=== PATIENT | female | born 1940 | race American Indian/Alaskan Native ===

== ENCOUNTER 2017-02-13 11:42 | Outpatient (CLI) | payer OTHER ==
[2017-02-13 12:56] LABS: Blood Urea Nitrogen 21 mg/dL (7-17)
--- NOTE | 2017-02-13 14:44 | Cat Scan Report ---
CT CHEST WITH CONTRAST: HISTORY: Syncope and collapse. TECHNIQUE: Helical CT following IV contrast. Sagittal and coronal reformatted images. FINDINGS: Heart size is normal. There is no evidence of adenopathy within the mediastinum. There is mild scarring in the right lower lobe, otherwise, the lungs are clear. The pleura is unremarkable. No masses involve the chest wall. No abnormalities are noted within the upper abdomen. The adrenal glands are normal. IMPRESSION: Right lower lobe scarring. No acute process.
== END 2017-02-13 11:43 | disposition home or self-care (01) ==
LOC: CT 11:42
PROVIDERS: ATTEND Internal Medicine
DX: R55 Syncope and collapse (principal)
CPT/HCPCS: 36415; 71260; 82565; 84520; Q9967

== ENCOUNTER 2019-02-04 09:20 | Inpatient (IN) | payer MEDICARE, OTHER ==
[2019-02-04 11:15] LABS: Basophils # (Auto) 0.1 K/mm3 (0.0-0.1); Basophils % (Auto) 1.4 % (0.0-1.8); Eosinophils % (Auto) 0.2 % (0.0-4.3); Hematocrit 33.9 % (30.3-42.9); Hemoglobin 10.6 gm/dl (10.1-14.3); Lymphocytes # (Auto) 0.5 K/mm3 (1.2-5.4); Lymphocytes % (Auto) 5.8 % (13.4-35.0); Mean Corpuscular HGB Conc 31 % (30-34); Mean Corpuscular Volume 79 fl (79-97); Monocytes % (Auto) 11.5 % (0.0-7.3); Platelet Count 177 K/mm3 (140-440); Red Blood Count 4.31 M/mm3 (3.65-5.03)
[2019-02-04 11:17] LABS: Red Cell Distribution Width 21.2 % (13.2-15.2)
[2019-02-04 11:26] LABS: INR 1.55 (0.87-1.13)
[2019-02-04 11:27] LABS: Partial Thromboplastin Time 27.7 Sec. (24.2-36.6)
[2019-02-04 11:34] LABS: Albumin 3.6 g/dL (3.9-5); Calcium 9.2 mg/dL (8.4-10.2)
--- NOTE | 2019-02-04 12:39 | Emergency Department Report ---
HPI - General Chief Complaint: Extremity Problem,Nontraumatic Time Seen by Provider: 02/04/19 12:15 - HPI HPI: 78-year-old -[place] female presents to the emergency department with complaint of left lower extremity swelling and pain that has been going on for the past 5-6 days. She went to [facility] yesterday and was found to have a DVT of the left lower extremity from the common and deep femoral vein down through the posterior tibial vein. She also had a CT angiography of the chest that did not show any embolism or any other acute process. She was started on Eliquis and given Percocet for pain. She saw her oncologist this morning, Dr. Fritz, and she expressed her continued and increased pain and swelling and she was told to come to the emergency department. She has a history of multiple myeloma, diagnosed in the middle of last year, and she has been taking chemotherapy for the past 6-7 months. ED Past Medical Hx - Past Medical History Previous Medical History?: Yes Hx Hypertension: Yes Additional medical history: Bone cancer - Surgical History Past Surgical History?: No - Social History Smoking Status: Never Smoker Substance Use Type: None - Medications Home Medications: Home Medications Medication Instructions Recorded Confirmed Last Taken Type Dexamethasone [Decadron] 4 mg PO Q12H 02/04/19 02/04/19 Unknown History Docusate Sodium [Doc-Q-Lace] 100 mg PO DAILY 02/04/19 02/04/19 Unknown History Furosemide [Lasix] 20 mg PO QDAY 02/04/19 02/04/19 Unknown History Lenalidomide [Revlimid] 15 mg PO QDAY 02/04/19 02/04/19 Unknown History Lisinopril [Zestril] 20 mg PO QDAY 02/04/19 02/04/19 Unknown History Metoprolol [Lopressor] 25 mg PO BID 02/04/19 02/04/19 Unknown History Pravastatin [Pravachol] 80 mg PO QHS 02/04/19 02/04/19 Unknown History ED Review of Systems ROS: Stated complaint: L LEG PAIN Other details as noted in HPI Comment: All other systems reviewed and negative Constitutional: denies: chills, fever Eyes: denies: eye pain, vision change ENT: denies: ear pain, throat pain Respiratory: denies: cough, shortness of breath Cardiovascular: edema. denies: chest pain, palpitations Gastrointestinal: denies: abdominal pain, vomiting Genitourinary: denies: dysuria, discharge Musculoskeletal: joint swelling, myalgia. denies: arthralgia Skin: denies: rash, lesions Neurological: denies: headache, weakness Physical Exam - Physical Exam Vital Signs: Vital Signs 02/04/19 09:33 Temperature 98.1 F Pulse Rate 80 Respiratory 16 Rate Blood Pressure 102/51 O2 Sat by Pulse 80 L Oximetry Physical Exam: GENERAL: The patient is well-developed well-nourished. HEENT: Normocephalic. Atraumatic. Patient has moist mucous membranes. EYES: Extraocular motions are intact. Pupils are equal and reactive to light bilaterally. NECK: Supple. Trachea is midline. CHEST/LUNGS: Clear to auscultation. There is no respiratory distress noted. HEART/CARDIOVASCULAR: Regular. There is no tachycardia. There is no obvious murmur. ABDOMEN: Abdomen is soft, nontender. Patient has normal bowel sounds. There is no abdominal distention. SKIN: LLE has moderate to severe non-pitting swelling and is tender to palpation up to the thigh. NEURO: The patient is awake, alert, and oriented. The patient is cooperative. The patient has no focal neurologic deficits. The patient has normal speech. MUSCULOSKELETAL: There is no tenderness or deformity. There is no evidence of acute injury. ED Course Vital Signs 02/04/19 09:33 Temperature 98.1 F Pulse Rate 80 Respiratory 16 Rate Blood Pressure 102/51 O2 Sat by Pulse 80 L Oximetry ED Medical Decision Making - Lab Data Result diagrams: 02/04/19 10:57 02/04/19 10:57 - Radiology Data Radiology results: report reviewed Left lower extremity venous Doppler ultrasound appears to show a large acute DVT from the iliac down to the peroneal and posterior tibial. A preliminary report was called by [facility]. - Medical Decision Making Patient was found to have a DVT yesterday but continued to have increased pain and swelling. She was sent in by her oncologist for this reason. Due to the patient's outpatient failure on the anticoagulation with increased swelling and pain, the patient has been placed on a heparin drip. She was seen by the vascular surgeon who will continue to follow her over the weekend to see if there is improvement or if further intervention is necessary. The patient was accepted for admission by the hospitalist, Dr. Liu. - Differential Diagnosis DVT, venous stasis, cellulitis Critical Care Time: No Critical care attestation.: If time is entered above; I have spent that time in minutes in the direct care of this critically ill patient, excluding procedure time. ED Disposition Clinical Impression: Failure of outpatient treatment, Obesity (BMI 30-39.9) Deep vein thrombosis (DVT) of distal vein of left lower extremity Qualifiers: Chronicity: acute Qualified Code(s): I82.4Z2 - Acute embolism and thrombosis of unspecified deep veins of left distal lower extremity Disposition: OP ADMIT IP TO THIS HOSP Is pt being admited?: Yes Condition: Fair Time of Disposition: 17:57
[2019-02-04] MEDS ORDERED: NACL 0.9% 1000 ML 1,000 ML IV ONE (12:48)
[2019-02-04] MEDS: HEPARIN/ 0.45% NACL-25,000 UNIT/500 ML 25,000 UNIT/500 ML BAG IV SCH (13:10)
[2019-02-04] MEDS ORDERED: SUBLIMAZE IV ONE (13:13)
[2019-02-04] MEDS ORDERED: PROVENTIL IH PRN (14:00)
[2019-02-04] MEDS ORDERED: ZOFRAN IV PRN (14:00)
[2019-02-04] MEDS ORDERED: SODIUM CHLORIDE FLUSH SYRINGE 10 ML IV PRN (14:00)
--- NOTE | 2019-02-04 14:07 | History and Physical Report ---
History of Present Illness Chief complaint: My leg hurts History of present illness: 78 YO Female with HTN, Multiple Myeloma, Obesity presents to ED for evaluation. Pt states that she has experienced Pain and swelling in her left lower extremity over the past 1 week with worsening symptoms over the past 3 days. Patient was seen and evaluated at [facility] yesterday and found to have an extensive DVT in the left lower extremity. DVT extends from the common and deep femoral vein down through the posterior tibial vein. Pt was treated with oral therapeutic anticoagulation and discharged home. Pt has experienced worsening leg pain over the past 1 day. Pt presents for evaluation. Pt seen and evaluated in ED and found to have symptoms consistent with LLE DVT. IR consulted in ED. Pt initiated on heparin drip. Pt denies fever, chills, CP, Palpitations, NVD, Trauma, Hemoptysis, BRBPR, Skin rash, Productive cough, or recent ill contacts. Past History Past Medical History: cancer, hypertension, other (obesity) Past Surgical History: No surgical history, Other (reviewed) Social history: . denies: smoking, alcohol abuse, prescription drug abuse Family history: hypertension Medications and Allergies Allergies Allergy/AdvReac Type Severity Reaction Status Date / Time Penicillins Allergy Swelling Unverified 02/13/17 11:59 STEROIDS AdvReac Dizziness Uncoded 02/13/17 12:01 Active Meds: Active Medications Acetaminophen (Tylenol) 650 mg PO Q4H PRN PRN Reason: Pain MILD(1-3)/Fever >100.5/JOSHI Albuterol (Proventil) 2.5 mg IH Q4HRT PRN PRN Reason: Shortness Of Breath Famotidine (Pepcid) 10 mg PO BID BRITT Heparin Sodium/Sodium Chloride (Heparin/ 0.45% Nacl-25,000 Unit/500 Ml) 25,000 unit in 500 mls @ 30 mls/hr IV TITR BRITT; Protocol Ondansetron HCl (Zofran) 4 mg IV Q8H PRN PRN Reason: Nausea And Vomiting Oxycodone/Acetaminophen (Percocet 5/325) 1 tab PO Q6H PRN PRN Reason: Pain, Moderate (4-6) Sodium Chloride (Sodium Chloride Flush Syringe 10 Ml) 10 ml IV BID BRITT Sodium Chloride (Sodium Chloride Flush Syringe 10 Ml) 10 ml IV PRN PRN PRN Reason: LINE FLUSH Review of Systems Constitutional: no weight loss, no weight gain, no fever, no chills Cardiovascular: no chest pain, no orthopnea, no palpitations, no rapid/irregular heart beat, no edema, no syncope, no lightheadedness Respiratory: no cough, no cough with sputum, no excessive sputum, no hemoptysis, no shortness of breath Gastrointestinal: no nausea, no vomiting, no diarrhea, no constipation Genitourinary Female: no pelvic pain, no flank pain, no menorrhagia, no dysuria, no urinary frequency, no urgency Rectal: no pain, no incontinence, no bleeding Musculoskeletal: no neck stiffness, no neck pain, no shooting arm pain, no arm numbness/tingling, no low back pain, no shooting leg pain Integumentary: no rash, no pruritis, no redness, no sores, no wounds Neurological: no transient paralysis, no paralysis, no weakness, no parathesias, no numbness, no tingling Psychiatric: no anxiety, no memory loss, no change in sleep habits, no sleep disturbances, no insomnia, no hypersomnia, no change in appetite Endocrine: no cold intolerance, no heat intolerance, no polyphagia, no excessive thirst, no polydipsia, no polyuria Hematologic/Lymphatic: no easy bruising, no easy bleeding, no lymphadenopathy, no lymphedema Allergic/Immunologic: no urticaria, no allergic rhinitis, no wheezing Exam - Constitutional Vitals: Temp Pulse Resp BP Pulse Ox 98.1 F 80 16 102/51 80 L 02/04/19 09:33 02/04/19 09:33 02/04/19 13:20 02/04/19 09:33 02/04/19 09:33 General appearance: Present: mild distress, obese - EENT Eyes: Present: PERRL ENT: hearing intact, clear oral mucosa - Neck Neck: Present: supple, normal ROM - Respiratory Respiratory effort: normal Respiratory: bilateral: CTA - Cardiovascular Heart Sounds: Present: S1 & S2. Absent: rub, click - Extremities Extremity abnormal: edema, tenderness Peripheral Pulses: within normal limits - Abdominal General gastrointestinal: Present: soft, non-tender, non-distended, normal bowel sounds Female genitourinary: Present: normal - Integumentary Integumentary: Present: clear, warm, dry - Musculoskeletal Musculoskeletal: gait normal, strength equal bilaterally - Psychiatric Psychiatric: appropriate mood/affect, intact judgment & insight - Neurologic Neurologic: CNII-XII intact, moves all extremities Results - Labs CBC & Chem 7: 02/04/19 10:57 02/04/19 10:57 Labs: Abnormal lab results 02/04/19 02/04/19 02/04/19 Range/Units 10:57 10:57 10:57 MCH 25 L (28-32) pg RDW 21.2 H (13.2-15.2) % Lymph % (Auto) 5.8 L (13.4-35.0) % [place] % (Auto) 11.5 H (0.0-7.3) % Lymph # 0.5 L (1.2-5.4) K/mm3 [place] # 1.0 H (0.0-0.8) K/mm3 Seg Neutrophils % 81.1 H (40.0-70.0) % PT 19.6 H (12.2-14.9) Sec. INR 1.55 H (0.87-1.13) Sodium 135 L (137-145) mmol/L Carbon Dioxide 21 L (22-30) mmol/L BUN 43 H (7-17) mg/dL Creatinine 1.8 H (0.7-1.2) mg/dL Albumin 3.6 L (3.9-5) g/dL Assessment and Plan - Patient Problems (1) Deep vein thrombosis (DVT) of distal vein of left lower extremity Current Visit: Yes Status: Acute Qualifiers: Chronicity: acute Qualified Code(s): I82.4Z2 - Acute embolism and thrombosis of unspecified deep veins of left distal lower extremity Plan to address problem: Heparin drip, IR consulted, LLE Duplex, supplemental oxygen, pulse oximetry, (2) Obesity (BMI 30-39.9) Current Visit: Yes Status: Acute Plan to address problem: Increased physical activity at discharge, balanced diet. (3) HTN (hypertension) Current Visit: Yes Status: Acute Qualifiers: Hypertension type: essential hypertension Qualified Code(s): I10 - Essential (primary) hypertension Plan to address problem: monitor bp q shift (4) Obesity hypoventilation syndrome Current Visit: Yes Status: Acute Plan to address problem: supplemental oxygen, nebulizer therapy, NIPPv as clinically indicated, pulse oximetry, early ambulation (5) DVT prophylaxis Current Visit: Yes Status: Acute Plan to address problem: heparin drip
--- NOTE | 2019-02-04 14:48 | Consultation ---
History of Present Illness - Reason for Consult Consult date: 02/04/19 left lower extremity DVT - History of Present Illness Patient with a history of multiple myeloma who presents with baseline is insufficiency with bilateral lower extremity swelling began to notice left lower extremity asymmetric swelling 5-6 days ago. She presented yesterday to [facility] which she where she was found to have iliofemoral DVT. CTA of the chest demonstrated no pulmonary embolism. The patient was discharged home on Eliquis but returns today because her leg is still swollen. On examination, her leg is asymmetrically enlarged to the hip. The leg is soft and warm. Past History Past Medical History: cancer, DVT, hypertension, other (obesity) Past Surgical History: No surgical history, Other (reviewed) Social history: . denies: smoking, alcohol abuse, prescription drug abuse Family history: hypertension Medications and Allergies Allergies Allergy/AdvReac Type Severity Reaction Status Date / Time Penicillins Allergy Swelling Unverified 02/13/17 11:59 STEROIDS AdvReac Dizziness Uncoded 02/13/17 12:01 Active Meds: Active Medications Acetaminophen (Tylenol) 650 mg PO Q4H PRN PRN Reason: Pain MILD(1-3)/Fever >100.5/JOSHI Albuterol (Proventil) 2.5 mg IH Q4HRT PRN PRN Reason: Shortness Of Breath Famotidine (Pepcid) 10 mg PO BID BRITT Heparin Sodium/Sodium Chloride (Heparin/ 0.45% Nacl-25,000 Unit/500 Ml) 25,000 unit in 500 mls @ 30 mls/hr IV TITR BRITT; Protocol Ondansetron HCl (Zofran) 4 mg IV Q8H PRN PRN Reason: Nausea And Vomiting Oxycodone/Acetaminophen (Percocet 5/325) 1 tab PO Q6H PRN PRN Reason: Pain, Moderate (4-6) Sodium Chloride (Sodium Chloride Flush Syringe 10 Ml) 10 ml IV BID BRITT Sodium Chloride (Sodium Chloride Flush Syringe 10 Ml) 10 ml IV PRN PRN PRN Reason: LINE FLUSH Review of Systems All systems: negative Exam - Constitutional Vitals: Temp Pulse Resp BP Pulse Ox 98.1 F 80 16 102/51 80 L 02/04/19 09:33 02/04/19 09:33 02/04/19 13:20 02/04/19 09:33 02/04/19 09:33 General appearance: Present: no acute distress - EENT Eyes: Present: EOM intact ENT: hearing intact - Neck Neck: Present: supple, normal ROM - Respiratory Respiratory effort: normal - Extremities Extremity abnormal: edema (left) - Abdominal General gastrointestinal: Present: deferred - Rectal Rectal Exam: deferred - Integumentary Integumentary: Present: clear - Psychiatric Psychiatric: appropriate mood/affect, cooperative - Neurologic Neurologic: no focal deficits, moves all extremities Results - Labs CBC & Chem 7: 02/04/19 10:57 02/04/19 10:57 Labs: Abnormal lab results 02/04/19 02/04/19 02/04/19 Range/Units 10:57 10:57 10:57 MCH 25 L (28-32) pg RDW 21.2 H (13.2-15.2) % Lymph % (Auto) 5.8 L (13.4-35.0) % [place] % (Auto) 11.5 H (0.0-7.3) % Lymph # 0.5 L (1.2-5.4) K/mm3 [place] # 1.0 H (0.0-0.8) K/mm3 Seg Neutrophils % 81.1 H (40.0-70.0) % PT 19.6 H (12.2-14.9) Sec. INR 1.55 H (0.87-1.13) Sodium 135 L (137-145) mmol/L Carbon Dioxide 21 L (22-30) mmol/L BUN 43 H (7-17) mg/dL Creatinine 1.8 H (0.7-1.2) mg/dL Albumin 3.6 L (3.9-5) g/dL - Imaging and Cardiology Venous US: image reviewed Assessment and Plan Patient with iliofemoral DVT. Ultrasound demonstrates DVT extending from the external iliac vein distally on the left. The common iliac vein is not visualized. Patient was started on heparin drip in the emergency department. Patient will need to aggressively elevate her leg. Compression hose may also be necessary. We'll continue to evaluate the patient to determine if further intervention is necessary. The patient will likely need long-term anticoagulation secondary to her underlying cancer.
--- NOTE | 2019-02-04 17:56 | Vascular Lab Report ---
EXAM: VL VENOUS DUPLEX LE LT HISTORY: LLE pain and swelling TECHNIQUE: The lower extremity veins were interrogated with a high-frequency linear transducer, emplo fe grayscale imaging, duplex Doppler and color flow Doppler imaging. COMPARISON: None available. FINDINGS: There is intraluminal thrombosis, loss of compressibility, loss of intraluminal color flow Doppler si gnal, and loss of intraluminal duplex Doppler signal within the left external iliac vein, common femo ral vein, superficial femoral vein, popliteal vein, peroneal vein, and gastrocnemius veins in keeping with acute occlusive DVT. There is evidence for acute/occlusive thrombosis involving the greater saphenous vein from the proxim al thigh to the ankle, in keeping with SVT. There is diffuse subcutaneous soft tissue edema. No abnormal fluid collection reminiscent of a Goss' s cyst is seen in the popliteal fossa. No evidence for gross inguinal lymphadenopathy is seen. IMPRESSION: 1.. Extensive acute occlusive DVT involving the left lower extremity veins 2. Acute SVT involving the greater saphenous vein from the thigh to the ankle. 3. Subcutaneous soft tissue edema. 4. No abnormal fluid collection or Goss's cyst seen. This document is electronically signed by Oniel Walton MD., February 04 2019 05:54:51 PM ET
[2019-02-04] MEDS ORDERED: PERCOCET 5/325 ONE (18:37)
[2019-02-04] MEDS: PERCOCET 5/325 PO PRN (18:38)
[2019-02-04] MEDS: SODIUM CHLORIDE FLUSH SYRINGE 10 ML IV SCH (22:27)
[2019-02-04] MEDS: PEPCID PO SCH (22:27)
[2019-02-05 05:24] LABS: Calcium 8.7 mg/dL (8.4-10.2)
[2019-02-05 05:37] LABS: Hematocrit 30.4 % (30.3-42.9); Hemoglobin 9.9 gm/dl (10.1-14.3); Mean Corpuscular HGB Conc 33 % (30-34); Mean Corpuscular Volume 76 fl (79-97); Platelet Count 198 K/mm3 (140-440); Red Blood Count 3.98 M/mm3 (3.65-5.03)
[2019-02-05 05:39] LABS: Red Cell Distribution Width 20.7 % (13.2-15.2)
[2019-02-05 06:22] LABS: Anisocytosis 1+; Basophils % (Manual) 0 % (0.0-1.8); Eosinophils % (Manual) 0 % (0.0-4.3); Hypochromasia 1+; Total Cells Counted 100
[2019-02-05 06:23] LABS: Ovalocytes 1+; Platelet Estimate Consistent w Auto; Target Cells 1+; Tear Drop Cells Few
[2019-02-05] MEDS: TYLENOL PO PRN (07:35)
[2019-02-05 08:19] LABS: Partial Thromboplastin Time 67.7 Sec. (24.2-36.6)
[2019-02-05] MEDS: PEPCID PO SCH ×2 (09:56→21:45)
[2019-02-05] MEDS: SODIUM CHLORIDE FLUSH SYRINGE 10 ML IV SCH ×2 (09:56→21:45)
[2019-02-05] MEDS: HEPARIN/ 0.45% NACL-25,000 UNIT/500 ML 25,000 UNIT/500 ML BAG IV SCH (11:16)
--- NOTE | 2019-02-05 11:21 | Progress Note ---
Assessment and Plan Assessment and plan: 78 YO Female with HTN, Multiple Myeloma, Obesity presents to ED for evaluation. Pt states that she has experienced Pain and swelling in her left lower extremity over the past 1 week with worsening symptoms over the past 3 days. Patient was seen and evaluated at [facility] on day KILN TESTER and found to have an extensive DVT in the left lower extremity. DVT extends from the common and deep femoral vein down through the posterior tibial vein. Pt was treated with oral therapeutic anticoagulation and discharged home. Pt has experienced worsening leg pain over the past 1 day. Pt presents for evaluation. Pt seen and evaluated in ED and found to have symptoms consistent with LLE DVT. IR consulted in ED. Pt initiated on heparin drip. Pt denies fever, chills, CP, Palpitations, NVD, Trauma, Hemoptysis, BRBPR, Skin rash, Productive cough, or recent ill contacts. Iliofemoral DVT: Continue anticoagulation, Follow IR/Vascular Recommendation. Discussed with Nursing staff again about Keeping LOWER EXT ELEVATED. Patient counselling provided Vertigo: Christal Hallpike Testing, Vestibular Rehab, PT Consulted WENDY secondary vasomotor nephropathy: Improving. Continue fluds Secondary Coagulopathy: on anticoagulation Multiple Myeloma: Continue outpatient management. Will obtain Hematology eval. Patient may require lovenox in the setting of DVT with underlying cancer. HTN: STABLE DVT/GI prophy History Interval history: Patient seen and examined this morning admitted with pain of the left lower extremity secondary to progressive DVT. Denies any chest pain nausea vomiting this morning. Denies any further vertigo. States that she is hungry.eyes the bedside Hospitalist Physical - Physical exam Narrative exam: VITAL SIGNS: Reviewed. GENERAL: The patient appeared well nourished and normally developed. Morbidly obese, Vital signs as documented. HEAD: No signs of head trauma. EYES: Pupils are equal. Extraocular motions intact. EARS: Hearing grossly intact. MOUTH: Oropharynx is normal. NECK: No adenopathy, no JVD. CHEST: Chest with clear breath sounds bilaterally. No wheezes, rales, or rhonchi. CARDIAC: Regular rate and rhythm. S1 and S2, without murmurs, gallops, or rubs. VASCULAR: left lower ext swelling non pitting Edema. Peripheral pulses normal and equal in all extremities. ABDOMEN: Soft, without detectable tenderness. No sign of distention. No rebound or guarding, and no masses palpated. Bowel Sounds normal. MUSCULOSKELETAL: Good range of motion of all major joints. Extremities without clubbing, cyanosis. Left lower ext edema, non pitting. Per family swelling is improving. NEUROLOGIC EXAM: Alert and oriented x 3. No focal sensory or strength deficits. Speech normal. Follows commands. PSYCHIATRIC: Mood normal. SKIN: No rash or lesions. - Constitutional Vitals: Temp Pulse Resp BP Pulse Ox 98.9 F 95 H 20 105/60 100 02/05/19 07:28 02/05/19 07:28 02/05/19 07:35 02/05/19 07:28 02/05/19 07:28 General appearance: Present: no acute distress Results - Labs CBC & Chem 7: 02/05/19 04:48 02/05/19 04:48 Labs: Laboratory Last Values WBC 8.0 K/mm3 (4.5-11.0) 02/05/19 04:48 RBC 3.98 M/mm3 (3.65-5.03) 02/05/19 04:48 Hgb 9.9 gm/dl (10.1-14.3) L 02/05/19 04:48 Hct 30.4 % (30.3-42.9) 02/05/19 04:48 MCV 76 fl (79-97) L 02/05/19 04:48 MCH 25 pg (28-32) L 02/05/19 04:48 MCHC 33 % (30-34) 02/05/19 04:48 RDW 20.7 % (13.2-15.2) H 02/05/19 04:48 Plt Count 198 K/mm3 (140-440) 02/05/19 04:48 Lymph % (Auto) Refinery Operator Alkylation 02/05/19 04:48 [place] % (Auto) Refinery Operator Alkylation 02/05/19 04:48 Eos % (Auto) Refinery Operator Alkylation 02/05/19 04:48 Baso % (Auto) Refinery Operator Alkylation 02/05/19 04:48 Lymph # Refinery Operator Alkylation 02/05/19 04:48 [place] # Refinery Operator Alkylation 02/05/19 04:48 Eos # Refinery Operator Alkylation 02/05/19 04:48 Baso # Refinery Operator Alkylation 02/05/19 04:48 Add Manual Diff Complete 02/05/19 04:48 Total Counted 100 02/05/19 04:48 Seg Neutrophils % Refinery Operator Alkylation 02/05/19 04:48 Seg Neuts % (Manual) 82.0 % (40.0-70.0) H 02/05/19 04:48 Band Neutrophils % 0 % 02/05/19 04:48 Lymphocytes % (Manual) 10.0 % (13.4-35.0) L 02/05/19 04:48 Reactive Lymphs % (Man) 0 % 02/05/19 04:48 Monocytes % (Manual) 8.0 % (0.0-7.3) H 02/05/19 04:48 Eosinophils % (Manual) 0 % (0.0-4.3) 02/05/19 04:48 Basophils % (Manual) 0 % (0.0-1.8) 02/05/19 04:48 Metamyelocytes % 0 % 02/05/19 04:48 Myelocytes % 0 % 02/05/19 04:48 Promyelocytes % 0 % 02/05/19 04:48 Blast Cells % 0 % 02/05/19 04:48 Nucleated RBC % Not Reportable 02/05/19 04:48 Seg Neutrophils # Refinery Operator Alkylation 02/05/19 04:48 Seg Neutrophils # Man 6.6 K/mm3 (1.8-7.7) 02/05/19 04:48 Band Neutrophils # 0.0 K/mm3 02/05/19 04:48 Lymphocytes # (Manual) 0.8 K/mm3 (1.2-5.4) L 02/05/19 04:48 Abs React Lymphs (Man) 0.0 K/mm3 02/05/19 04:48 Monocytes # (Manual) 0.6 K/mm3 (0.0-0.8) 02/05/19 04:48 Eosinophils # (Manual) 0.0 K/mm3 (0.0-0.4) 02/05/19 04:48 Basophils # (Manual) 0.0 K/mm3 (0.0-0.1) 02/05/19 04:48 Metamyelocytes # 0.0 K/mm3 02/05/19 04:48 Myelocytes # 0.0 K/mm3 02/05/19 04:48 Promyelocytes # 0.0 K/mm3 02/05/19 04:48 Blast Cells # 0.0 K/mm3 02/05/19 04:48 WBC Morphology Not Reportable 02/05/19 04:48 Hypersegmented Neuts Not Reportable 02/05/19 04:48 Hyposegmented Neuts Not Reportable 02/05/19 04:48 Hypogranular Neuts Not Reportable 02/05/19 04:48 Smudge Cells Not Reportable 02/05/19 04:48 Toxic Granulation Not Reportable 02/05/19 04:48 Toxic Vacuolation Not Reportable 02/05/19 04:48 Dohle Bodies Not Reportable 02/05/19 04:48 Pelger-Huet Anomaly Not Reportable 02/05/19 04:48 Irma Rods Not Reportable 02/05/19 04:48 Platelet Estimate Consistent w auto 02/05/19 04:48 Clumped Platelets Not Reportable 02/05/19 04:48 Plt Clumps, EDTA Not Reportable 02/05/19 04:48 Large Platelets Not Reportable 02/05/19 04:48 Giant Platelets Not Reportable 02/05/19 04:48 Platelet Satelliting Not Reportable 02/05/19 04:48 Plt Morphology Comment Not Reportable 02/05/19 04:48 RBC Morphology Not Reportable 02/05/19 04:48 Dimorphic RBCs Not Reportable 02/05/19 04:48 Polychromasia Not Reportable 02/05/19 04:48 Hypochromasia 1+ 02/05/19 04:48 Poikilocytosis Not Reportable 02/05/19 04:48 Anisocytosis 1+ 02/05/19 04:48 Microcytosis Not Reportable 02/05/19 04:48 Macrocytosis Not Reportable 02/05/19 04:48 Spherocytes Not Reportable 02/05/19 04:48 Pappenheimer Bodies Not Reportable 02/05/19 04:48 Sickle Cells Not Reportable 02/05/19 04:48 Target Cells 1+ 02/05/19 04:48 Tear Drop Cells Few 02/05/19 04:48 Ovalocytes 1+ 02/05/19 04:48 Helmet Cells Not Reportable 02/05/19 04:48 [place] Bodies Not Reportable 02/05/19 04:48 [place] Rings Not Reportable 02/05/19 04:48 [place] Cells Not Reportable 02/05/19 04:48 Bite Cells Not Reportable 02/05/19 04:48 Crenated Cell Not Reportable 02/05/19 04:48 Elliptocytes Not Reportable 02/05/19 04:48 Acanthocytes (Spur) Not Reportable 02/05/19 04:48 Rouleaux Not Reportable 02/05/19 04:48 Hemoglobin C Crystals Not Reportable 02/05/19 04:48 Schistocytes Not Reportable 02/05/19 04:48 Malaria parasites Not Reportable 02/05/19 04:48 Angel Bodies Not Reportable 02/05/19 04:48 Hem Pathologist Commnt No 02/05/19 04:48 PT 19.6 Sec. (12.2-14.9) H 02/04/19 10:57 INR 1.55 (0.87-1.13) H 02/04/19 10:57 APTT 32.0 Sec. (24.2-36.6) 02/05/19 10:12 Heparin Anti-Xa Level 1.79 U.I./ml (0.3-0.7) H 02/05/19 10:12 Sodium 136 mmol/L (137-145) L 02/05/19 04:48 Potassium 3.9 mmol/L (3.6-5.0) 02/05/19 04:48 Chloride 101.5 mmol/L (98-107) 02/05/19 04:48 Carbon Dioxide 21 mmol/L (22-30) L 02/05/19 04:48 Anion Gap 17 mmol/L 02/05/19 04:48 BUN 37 mg/dL (7-17) H 02/05/19 04:48 Creatinine 1.1 mg/dL (0.7-1.2) 02/05/19 04:48 Estimated GFR 58 ml/min 02/05/19 04:48 BUN/Creatinine Ratio 34 % 02/05/19 04:48 Glucose 91 mg/dL (65-100) 02/05/19 04:48 Calcium 8.7 mg/dL (8.4-10.2) 02/05/19 04:48 Total Bilirubin 0.40 mg/dL (0.1-1.2) 02/04/19 10:57 AST 8 units/L (5-40) 02/04/19 10:57 ALT 7 units/L (7-56) 02/04/19 10:57 Alkaline Phosphatase 61 units/L (35-129) 02/04/19 10:57 Total Protein 7.0 g/dL (6.3-8.2) 02/04/19 10:57 Albumin 3.6 g/dL (3.9-5) L 02/04/19 10:57 Albumin/Globulin Ratio 1.1 % 02/04/19 10:57 - Imaging and Cardiology Imaging and Cardiology: Left lower ext. extensive DVT and SVT.
[2019-02-05] MEDS: PERCOCET 5/325 PO PRN (13:31)
[2019-02-06 06:18] LABS: Hematocrit 29.1 % (30.3-42.9); Hemoglobin 9.4 gm/dl (10.1-14.3)
[2019-02-06] MEDS: PEPCID PO SCH ×2 (09:58→21:56)
[2019-02-06] MEDS: SODIUM CHLORIDE FLUSH SYRINGE 10 ML IV SCH ×2 (10:00→21:56)
[2019-02-06] MEDS: TYLENOL PO PRN (10:11)
--- NOTE | 2019-02-06 12:18 | Progress Note ---
Assessment and Plan Assessment and plan: 78 YO Female with HTN, Multiple Myeloma, Obesity presents to ED for evaluation. Pt states that she has experienced Pain and swelling in her left lower extremity over the past 1 week with worsening symptoms over the past 3 days. Patient was seen and evaluated at [facility] on day ROULETTE DEALER and found to have an extensive DVT in the left lower extremity. DVT extends from the common and deep femoral vein down through the posterior tibial vein. Pt was treated with oral therapeutic anticoagulation and discharged home. Pt has experienced worsening leg pain over the past 1 day. Pt presents for evaluation. Pt seen and evaluated in ED and found to have symptoms consistent with LLE DVT. IR consulted in ED. Pt initiated on heparin drip. Pt denies fever, chills, CP, Palpitations, NVD, Trauma, Hemoptysis, BRBPR, Skin rash, Productive cough, or recent ill contacts. Iliofemoral DVT: Continue anticoagulation, Follow IR/Vascular Recommendation. Discussed with Nursing staff again about Keeping LOWER EXT ELEVATED. Patient counselling provided Vertigo: Christal Hallpike Testing, Vestibular Rehab, PT Consulted WENDY secondary vasomotor nephropathy: Resolved. stopped fluids. Secondary Coagulopathy: on anticoagulation Multiple Myeloma: Continue outpatient management. Patient well known to Dr Hidalgo, oncologist. Consult placed. Patient may require lovenox in the setting of DVT with underlying cancer. Dementia: still present. continue current treatment plan HTN: STABLE DVT/GI prophy History Interval history: Patient seen and examined, She was admitted with pain of the left lower extremity secondary to progressive DVT. Denies any chest pain nausea vomiting this morning. Denies any further vertigo. she reports pain intermittently at the left hip joint. Per family today, the patient has underlying dementia and sometimes javier state no pain, then later claim the counter. Hospitalist Physical - Physical exam Narrative exam: VITAL SIGNS: Reviewed. GENERAL: The patient appeared well nourished and normally developed. Morbidly obese, Vital signs as documented. HEAD: No signs of head trauma. EYES: Pupils are equal. Extraocular motions intact. EARS: Hearing grossly intact. MOUTH: Oropharynx is normal. NECK: No adenopathy, no JVD. CHEST: Chest with clear breath sounds bilaterally. No wheezes, rales, or rhonchi. CARDIAC: Regular rate and rhythm. S1 and S2, without murmurs, gallops, or rubs. VASCULAR: left lower ext swelling non pitting Edema improving. Peripheral pulses normal and equal in all extremities. ABDOMEN: Soft, without detectable tenderness. No sign of distention. No rebound or guarding, and no masses palpated. Bowel Sounds normal. MUSCULOSKELETAL: Good range of motion of all major joints. Extremities without clubbing, cyanosis. Left lower ext edema, non pitting. Per family swelling is improving. NEUROLOGIC EXAM: Alert and oriented x 3. No focal sensory or strength deficits. Speech normal. Follows commands. PSYCHIATRIC: Mood normal. SKIN: No rash or lesions. - Constitutional Vitals: Temp Pulse Resp BP Pulse Ox 98.3 F 90 20 107/64 98 02/06/19 08:04 02/06/19 08:04 02/06/19 10:11 02/06/19 08:04 02/06/19 09:30 General appearance: Present: no acute distress Results - Labs CBC & Chem 7: 02/06/19 06:00 02/05/19 04:48 Labs: Laboratory Last Values WBC 8.0 K/mm3 (4.5-11.0) 02/05/19 04:48 RBC 3.98 M/mm3 (3.65-5.03) 02/05/19 04:48 Hgb 9.4 gm/dl (10.1-14.3) L 02/06/19 06:00 Hct 29.1 % (30.3-42.9) L 02/06/19 06:00 MCV 76 fl (79-97) L 02/05/19 04:48 MCH 25 pg (28-32) L 02/05/19 04:48 MCHC 33 % (30-34) 02/05/19 04:48 RDW 20.7 % (13.2-15.2) H 02/05/19 04:48 Plt Count 202 K/mm3 (140-440) 02/06/19 06:00 Lymph % (Auto) [place]ile [place] Marble Installer 02/05/19 04:48 [place] % (Auto) Tile And Marble Installer 02/05/19 04:48 Eos % (Auto) [employer]ile [employer] Marble Installer 02/05/19 04:48 Baso % (Auto) [employer]ile [employer] Marble Installer 02/05/19 04:48 Lymph # Tile [employer] Marble Installer 02/05/19 04:48 [place] # Tile And Marble Installer 02/05/19 04:48 Eos # Tile And Marble Installer 02/05/19 04:48 Baso # Tile And Marble Installer 02/05/19 04:48 Add Manual Diff Complete 02/05/19 04:48 Total Counted 100 02/05/19 04:48 Seg Neutrophils % Tile And Marble Installer 02/05/19 04:48 Seg Neuts % (Manual) 82.0 % (40.0-70.0) H 02/05/19 04:48 Band Neutrophils % 0 % 02/05/19 04:48 Lymphocytes % (Manual) 10.0 % (13.4-35.0) L 02/05/19 04:48 Reactive Lymphs % (Man) 0 % 02/05/19 04:48 Monocytes % (Manual) 8.0 % (0.0-7.3) H 02/05/19 04:48 Eosinophils % (Manual) 0 % (0.0-4.3) 02/05/19 04:48 Basophils % (Manual) 0 % (0.0-1.8) 02/05/19 04:48 Metamyelocytes % 0 % 02/05/19 04:48 Myelocytes % 0 % 02/05/19 04:48 Promyelocytes % 0 % 02/05/19 04:48 Blast Cells % 0 % 02/05/19 04:48 Nucleated RBC % Not Reportable 02/05/19 04:48 Seg Neutrophils # Tile And Marble Installer 02/05/19 04:48 Seg Neutrophils # Man 6.6 K/mm3 (1.8-7.7) 02/05/19 04:48 Band Neutrophils # 0.0 K/mm3 02/05/19 04:48 Lymphocytes # (Manual) 0.8 K/mm3 (1.2-5.4) L 02/05/19 04:48 Abs React Lymphs (Man) 0.0 K/mm3 02/05/19 04:48 Monocytes # (Manual) 0.6 K/mm3 (0.0-0.8) 02/05/19 04:48 Eosinophils # (Manual) 0.0 K/mm3 (0.0-0.4) 02/05/19 04:48 Basophils # (Manual) 0.0 K/mm3 (0.0-0.1) 02/05/19 04:48 Metamyelocytes # 0.0 K/mm3 02/05/19 04:48 Myelocytes # 0.0 K/mm3 02/05/19 04:48 Promyelocytes # 0.0 K/mm3 02/05/19 04:48 Blast Cells # 0.0 K/mm3 02/05/19 04:48 WBC Morphology Not Reportable 02/05/19 04:48 Hypersegmented Neuts Not Reportable 02/05/19 04:48 Hyposegmented Neuts Not Reportable 02/05/19 04:48 Hypogranular Neuts Not Reportable 02/05/19 04:48 Smudge Cells Not Reportable 02/05/19 04:48 Toxic Granulation Not Reportable 02/05/19 04:48 Toxic Vacuolation Not Reportable 02/05/19 04:48 Dohle Bodies Not Reportable 02/05/19 04:48 Pelger-Huet Anomaly Not Reportable 02/05/19 04:48 Irma Rods Not Reportable 02/05/19 04:48 Platelet Estimate Consistent w auto 02/05/19 04:48 Clumped Platelets Not Reportable 02/05/19 04:48 Plt Clumps, EDTA Not Reportable 02/05/19 04:48 Large Platelets Not Reportable 02/05/19 04:48 Giant Platelets Not Reportable 02/05/19 04:48 Platelet Satelliting Not Reportable 02/05/19 04:48 Plt Morphology Comment Not Reportable 02/05/19 04:48 RBC Morphology Not Reportable 02/05/19 04:48 Dimorphic RBCs Not Reportable 02/05/19 04:48 Polychromasia Not Reportable 02/05/19 04:48 Hypochromasia 1+ 02/05/19 04:48 Poikilocytosis Not Reportable 02/05/19 04:48 Anisocytosis 1+ 02/05/19 04:48 Microcytosis Not Reportable 02/05/19 04:48 Macrocytosis Not Reportable 02/05/19 04:48 Spherocytes Not Reportable 02/05/19 04:48 Pappenheimer Bodies Not Reportable 02/05/19 04:48 Sickle Cells Not Reportable 02/05/19 04:48 Target Cells 1+ 02/05/19 04:48 Tear Drop Cells Few 02/05/19 04:48 Ovalocytes 1+ 02/05/19 04:48 Helmet Cells Not Reportable 02/05/19 04:48 [place] Bodies Not Reportable 02/05/19 04:48 [place] Rings Not Reportable 02/05/19 04:48 [place] Cells Not Reportable 02/05/19 04:48 Bite Cells Not Reportable 02/05/19 04:48 Crenated Cell Not Reportable 02/05/19 04:48 Elliptocytes Not Reportable 02/05/19 04:48 Acanthocytes (Spur) Not Reportable 02/05/19 04:48 Rouleaux Not Reportable 02/05/19 04:48 Hemoglobin C Crystals Not Reportable 02/05/19 04:48 Schistocytes Not Reportable 02/05/19 04:48 Malaria parasites Not Reportable 02/05/19 04:48 Angel Bodies Not Reportable 02/05/19 04:48 Hem Pathologist Commnt No 02/05/19 04:48 PT 19.6 Sec. (12.2-14.9) H 02/04/19 10:57 INR 1.55 (0.87-1.13) H 02/04/19 10:57 APTT 32.0 Sec. (24.2-36.6) 02/05/19 10:12 Heparin Anti-Xa Level 1.31 U.I./ml (0.3-0.7) H 02/06/19 01:30 Sodium 136 mmol/L (137-145) L 02/05/19 04:48 Potassium 3.9 mmol/L (3.6-5.0) 02/05/19 04:48 Chloride 101.5 mmol/L (98-107) 02/05/19 04:48 Carbon Dioxide 21 mmol/L (22-30) L 02/05/19 04:48 Anion Gap 17 mmol/L 02/05/19 04:48 BUN 37 mg/dL (7-17) H 02/05/19 04:48 Creatinine 1.1 mg/dL (0.7-1.2) 02/05/19 04:48 Estimated GFR 58 ml/min 02/05/19 04:48 BUN/Creatinine Ratio 34 % 02/05/19 04:48 Glucose 91 mg/dL (65-100) 02/05/19 04:48 Calcium 8.7 mg/dL (8.4-10.2) 02/05/19 04:48 Total Bilirubin 0.40 mg/dL (0.1-1.2) 02/04/19 10:57 AST 8 units/L (5-40) 02/04/19 10:57 ALT 7 units/L (7-56) 02/04/19 10:57 Alkaline Phosphatase 61 units/L (35-129) 02/04/19 10:57 Total Protein 7.0 g/dL (6.3-8.2) 02/04/19 10:57 Albumin 3.6 g/dL (3.9-5) L 02/04/19 10:57 Albumin/Globulin Ratio 1.1 % 02/04/19 10:57 Nutrition/Malnutrition Assess - Dietary Evaluation Nutrition/Malnutrition Findings: Nutrition Notes Start: 02/05/19 13:49 Freq: Status: Active Protocol: Document 02/05/19 13:49 GISELLA (Rec: 02/05/19 13:59 GISELLA [id number] [email or web address]) Nutrition Notes Need for Assessment generated from: career developer,MST Initial or Follow up Assessment Current Diagnosis Hypertension Other Pertinent Diagnosis LLE DVT, Multiple myeloma Current Diet Cardiac Labs/Tests Reviewed Pertinent Medications Heparin gtt Height 5 ft 4 in Weight 107.3 kg Usual Body Weight 117.8 kg [place] Body Weight (kg) 54.54 BMI 40.6 Weight change and time frame Pt reports unintentional 8.9% wt loss since starting chemo six months ago. Weight Status Obese Subjective/Other Information Pt screened for malnutrition risk (wt loss, poor appetite). She has been on chemo for the past six months and reports constant dizziness and poor appetite. Diet to be advanced for lunch today; last PO meal was evening of 02/03/19 . Burn Absent Trauma Absent GI Symptoms Nausea,Constipation Food Allergy No Skin Integrity/Comment Torey score: 19 Current % PO Poor (25-49%) Energy Intake (non-severe) <75% Estimated Energy Requirement >7 days #1 Nutrition Diagnosis Inadequate oral intake Etiology chemotherapy As Evidenced by Signs and Symptoms pt reports decreased PO intake since starting chemo Is patient on ventilator? No Is Patient Ambulatory and/or Out of Bed Yes REE-([place]-St. Jeor-ambulatory/OOB) [ 2012.400 NUTR.MSJOOB] Kcal/Kg value to use for calculation 14 Approximate Energy Requirements Using 1502 kcal/Kg Calculation Used for Recommendations Kcal/kg Additional Notes Pro needs 1-1.2g/kg adjBW: 81- 97g/day Fluid needs 1ml/kcal Nutrition Intervention Change Diet Order: Continue current diet order Goal #1 PO tolerance Goal #2 PO intakes to meet at least 80 % nutrient needs Anticipated Discharge Needs: Unable to identify at this time Follow-Up By: 02/06/19 Additional Comments F/U: PO tolerance/intakes, need for ONS, dizziness - Attestation Statement I have reviewed and agreed w/ Malnutrition eval & tx plan: Yes
--- NOTE | 2019-02-06 15:07 | Event Note ---
Date: 02/06/19 [id number]
[2019-02-06] MEDS: ROXICODONE PO PRN (16:13)
[2019-02-06] MEDS: HEPARIN/ 0.45% NACL-25,000 UNIT/500 ML 25,000 UNIT/500 ML BAG IV SCH (19:18)
[2019-02-06] MEDS: SENOKOT PO SCH (21:56)
--- NOTE | 2019-02-06 22:15 | Consultation ---
REFERRING PHYSICIAN: Dmitri Lora MD REASON FOR CONSULTATION: History of multiple myeloma and left leg DVT. HISTORY OF PRESENT ILLNESS: I saw the patient who is a 78-year-old female with history of multiple myeloma on the Medical Floor. The patient was diagnosed with multiple myeloma in 06/2018. The bone marrow had shown 20-30% monoclonal plasma cells. There were no lytic lesions. Hemoglobin was 12.7, creatinine 0.5, and calcium was normal. IPSS was staged as 2; the monoclonal spike was 1500 mg; and ESR was high. The patient has undergone Velcade, Revlimid, and dexamethasone based treatment. She finished 6 cycles of the same. She was not keen for more. We had given her a break. When she was last seen on 01/31/2019, she had been having dizziness. She also had left leg swelling, for which she went to the Emergency Room at [facility] and was diagnosed with DVT. As per the information available, there was no PE, and she was discharged. She came to the clinic, and she had a lot of pain, and she was asked to go to the hospital at [facility]. Extensive DVT was found to common and deep femoral veins, and she was placed on IV heparin. Vascular Team had seen the patient. I have been asked to evaluate the patient at this time. No headache, no visual disturbances. No ear discharge. No chest pain or shortness of breath. No abdominal pain, no vomiting, and no diarrhea. Left leg swelling is better, pain is better. No seizure or syncope. No loss of consciousness. PAST MEDICAL HISTORY: Multiple myeloma, hypertension, and obesity. PAST SURGICAL HISTORY: None. SOCIAL HISTORY: No history of tobacco or alcohol usage. FAMILY HISTORY: Hypertension. ALLERGIES: TO PENICILLIN, SWELLING. HOME MEDICATIONS: Include Revlimid and dexamethasone weekly. Revlimid was 15 mg and dexamethasone was 20 mg weekly. PHYSICAL EXAMINATION: VITAL SIGNS: Temperature is 98, pulse 93, respirations 20, and blood pressure 114/72. HEENT: Mild pallor. No icterus. NECK: No neck lymph nodes. HEART: S1 and S2. LUNGS: Clear to auscultation. ABDOMEN: Soft. EXTREMITIES: Left leg swelling present. NEUROLOGIC: Alert, awake. Moving all extremities. LABORATORY DATA: White cells 8, hemoglobin 9.9, MCV 76, and platelets 198. Heparin anti-Xa level 1.82. Potassium 3.9, creatinine 1.1, and bilirubin 0.4. RADIOLOGY DATA: DVT study shows common femoral vein DVT; also within the external iliac vein. ASSESSMENT AND PLAN: 1. Deep venous thrombosis. As per the information available, there was no PE at [facility]. 2. History of multiple myeloma. 3. For the deep venous thrombosis, she is on heparin drip. Vascular Team has seen the patient. Once there is a plan for oral change, I would prefer Eliquis. 4. For multiple myeloma. The patient has finished 6 cycles of Velcade, Revlimid, and dexamethasone, and she was going to be on Revlimid 15 mg with dexamethasone on a weekly basis. Revlimid was 3 weeks on, 1 week off. 5. The M-spike was 0.6. 6. Multiple myeloma was diagnosed in 06/2018. 7. Mild anemia. 8. History of hypertension. 9. In the notes, mention of obesity-hypoventilation syndrome. 10. I will follow the patient during inpatient stay and then in the clinic setting. In December, the Serum iron was 76 and serum ferritin was 369. 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 JOB# [id number] NM/NTS
[2019-02-07] MEDS: ROXICODONE PO PRN ×2 (04:17→10:17)
--- NOTE | 2019-02-07 06:01 | Hem/Onc Progress Note ---
Assessment and Plan 1. Deep venous thrombosis. As per the information available, there was no PE at [place]. 2. History of multiple myeloma. 3. For the deep venous thrombosis, she is on heparin drip. Vascular Team has seen the patient. Once there is a plan for oral change, I would prefer Eliquis. 4. For multiple myeloma. The patient has finished 6 cycles of Velcade, Revlimid, and dexamethasone, and she was going to be on Revlimid 15 mg with dexamethasone on a weekly basis. Revlimid was 3 weeks on, 1 week off. 5. The M-spike was 0.6. 6. Multiple myeloma was diagnosed in 06/2018. 7. Mild anemia. 8. History of hypertension. 9. In the notes, mention of obesity-hypoventilation syndrome. 10. I will follow the patient during inpatient stay and then in the clinic setting. In December, the Serum iron was 76 and serum ferritin was 369. 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 It appears no intervention is planned - oral eliquis and OP follow up an option - Patient Problems (1) Deep vein thrombosis (DVT) of distal vein of left lower extremity Current Visit: Yes Status: Acute Qualifiers: Chronicity: acute Qualified Code(s): I82.4Z2 - Acute embolism and thrombosis of unspecified deep veins of left distal lower extremity (2) Myeloma Current Visit: No Status: Acute Qualifiers: Multiple myeloma remission status: not in remission Qualified Code(s): C90.00 - Multiple myeloma not having achieved remission Subjective Date of service: 02/07/19 Principal diagnosis: DVT Objective - Constitutional Vitals: Last Vital Signs Temp 98.9 F 02/07/19 02:55 Pulse 96 H 02/07/19 02:03 Resp 18 02/07/19 02:55 BP 104/68 02/07/19 02:03 Pulse Ox 95 02/07/19 02:03 Pain Intensity (0-10): 1/10 (left leg) General appearance: no acute distress Performance status: 3-limited selfcare - EENT Eyes: EOM intact ENT: clear oral mucosa Lymph node exam: negative cervical - Neck Neck: normal ROM - Respiratory Respiratory effort: Positive: normal Respiratory: bilateral: CTA - Cardiovascular Heart Sounds: Present: S1 & S2 Extremity abnormal: edema - Gastrointestinal General gastrointestinal: Present: soft, non-tender Rectal Exam: deferred - Genitourinary Female genitourinary: Present: deferred - Integumentary Integumentary: warm - Musculoskeletal Musculoskeletal: strength equal bilaterally - Neurologic Neurologic: moves all extremities - Psychiatric Psychiatric: appropriate mood/affect - Labs Lab Results: Laboratory Results - last 24 hr 02/06/19 02/06/19 02/06/19 06:00 12:00 19:43 Hgb 9.4 L Hct 29.1 L Plt Count 202 Heparin Anti-Xa Level 0.83 H 0.66 Medications & Allergies - Medications Allergies/Adverse Reactions: Allergies Penicillins Allergy (Unverified 02/13/17 11:59) Swelling STEROIDS Adverse Reaction (Uncoded 02/13/17 12:01) Dizziness Home Medications: Home Medications Medication Instructions Recorded Confirmed Last Taken Type Dexamethasone [Decadron] 4 mg PO Q12H 02/04/19 02/04/19 Unknown History Docusate Sodium [Doc-Q-Lace] 100 mg PO DAILY 02/04/19 02/04/19 Unknown History Furosemide [Lasix] 20 mg PO QDAY 02/04/19 02/04/19 Unknown History Lenalidomide [Revlimid] 15 mg PO QDAY 02/04/19 02/04/19 Unknown History Lisinopril [Zestril] 20 mg PO QDAY 02/04/19 02/04/19 Unknown History Metoprolol [Lopressor] 25 mg PO BID 02/04/19 02/04/19 Unknown History Pravastatin [Pravachol] 80 mg PO QHS 02/04/19 02/04/19 Unknown History Active Medications: Generic Name Dose Route Start Last Admin Trade Name Freq PRN Reason Stop Dose Admin Acetaminophen 650 mg 02/04/19 14:00 02/06/19 10:11 Tylenol PO 650 mg Q4H PRN Administration Pain MILD(1-3)/Fever >100.5/JOSHI Albuterol 2.5 mg 02/04/19 14:00 Proventil IH Q4HRT PRN Shortness Of Breath Famotidine 10 mg 02/04/19 22:00 02/06/19 21:56 Pepcid PO 10 mg BID BRITT Administration Heparin Sodium/Sodium Chloride 25,000 unit in 500 mls @ 30 mls/hr 02/04/19 14:00 02/06/19 22:43 Heparin/ 0.45% Nacl-25,000 Unit/500 Ml IV 700 units/hr TITR BRITT 14 mls/hr Titration Protocol 1,500 UNITS/HR Ondansetron HCl 4 mg 02/04/19 14:00 Zofran IV Q8H PRN Nausea And Vomiting Oxycodone HCl 10 mg 02/06/19 12:17 02/07/19 04:17 Roxicodone PO 10 mg Q6H PRN Administration Pain, Moderate (4-6) Senna 8.6 mg 02/06/19 22:00 02/06/19 21:56 Senokot PO 8.6 mg BID BRITT Administration Sodium Chloride 10 ml 02/04/19 22:00 02/06/19 21:56 Sodium Chloride Flush Syringe 10 Ml IV 10 ml BID BRITT Administration Sodium Chloride 10 ml 02/04/19 14:00 Sodium Chloride Flush Syringe 10 Ml IV PRN PRN LINE FLUSH
[2019-02-07] MEDS: TYLENOL PO PRN (08:41)
--- NOTE | 2019-02-07 09:28 | Progress Note ---
Assessment and Plan The patient will need to begin to mobilize with physical therapy. Additionally, will place order for SHIKHA romo With continued improvement, and would anticipate discharge within the next several days. Ultimately, the patient will require evaluation and treatment of her deep venous system as the etiology of her DVT is likely a combination of immobility, multiple myeloma and compression of her left common iliac vein from overlying artery. Following her treatment regimen on oral anticoagulation, the patient will need to be placed on lifelong anticoagulation. Subjective Date of service: 02/07/19 Principal diagnosis: left iliofemoral DVT Interval history: Patient with a history of a left extensive iliofemoral DVT and multiple myeloma. The patient has experienced significant relief and the pain and swelling on her left leg. Currently on a heparin drip. Objective - Constitutional Vitals: Vital Signs - 12hr 02/06/19 02/07/19 02/07/19 22:00 02:03 02:55 Temperature 98.9 F Pulse Rate 86 96 H Pulse Rate [ 86 Right Radial] Respiratory 20 18 Rate Blood Pressure 104/68 O2 Sat by Pulse 95 Oximetry 02/07/19 07:59 Temperature 98.2 F Pulse Rate 87 Pulse Rate [ Right Radial] Respiratory 20 Rate Blood Pressure 108/66 O2 Sat by Pulse 78 L Oximetry General appearance: Present: no acute distress - EENT Eyes: EOM intact ENT: hearing intact - Neck Neck: supple - Respiratory Respiratory effort: normal Extremities: abnormal Extremity abnormal: edema - Gastrointestinal General gastrointestinal: Present: deferred Rectal Exam: deferred - Genitourinary Female genitourinary: deferred - Neurologic Neurologic: no focal deficits - Psychiatric Psychiatric: appropriate mood/affect, cooperative - Labs CBC & Chem 7: 02/06/19 06:00 02/05/19 04:48 Labs: Abnormal lab results 02/06/19 Range/Units 12:00 Heparin Anti-Xa Level 0.83 H (0.3-0.7) U.I./ml Medications & Allergies - Medications Allergies/Adverse Reactions: Allergies Penicillins Allergy (Unverified 02/13/17 11:59) Swelling STEROIDS Adverse Reaction (Uncoded 02/13/17 12:01) Dizziness Home Medications: Home Medications Medication Instructions Recorded Confirmed Last Taken Type Dexamethasone [Decadron] 4 mg PO Q12H 02/04/19 02/04/19 Unknown History Docusate Sodium [Doc-Q-Lace] 100 mg PO DAILY 02/04/19 02/04/19 Unknown History Furosemide [Lasix] 20 mg PO QDAY 02/04/19 02/04/19 Unknown History Lenalidomide [Revlimid] 15 mg PO QDAY 02/04/19 02/04/19 Unknown History Lisinopril [Zestril] 20 mg PO QDAY 02/04/19 02/04/19 Unknown History Metoprolol [Lopressor] 25 mg PO BID 02/04/19 02/04/19 Unknown History Pravastatin [Pravachol] 80 mg PO QHS 02/04/19 02/04/19 Unknown History Active Medications: Generic Name Dose Route Start Last Admin Trade Name Freq PRN Reason Stop Dose Admin Acetaminophen 650 mg 02/04/19 14:00 02/07/19 08:41 Tylenol PO 650 mg Q4H PRN Administration Pain MILD(1-3)/Fever >100.5/JOSHI Albuterol 2.5 mg 02/04/19 14:00 Proventil IH Q4HRT PRN Shortness Of Breath Famotidine 10 mg 02/04/19 22:00 02/06/19 21:56 Pepcid PO 10 mg BID BRITT Administration Heparin Sodium/Sodium Chloride 25,000 unit in 500 mls @ 30 mls/hr 02/04/19 14:00 02/06/19 22:43 Heparin/ 0.45% Nacl-25,000 Unit/500 Ml IV 700 units/hr TITR BRITT 14 mls/hr Titration Protocol 1,500 UNITS/HR Ondansetron HCl 4 mg 02/04/19 14:00 Zofran IV Q8H PRN Nausea And Vomiting Oxycodone HCl 10 mg 02/06/19 12:17 02/07/19 04:17 Roxicodone PO 10 mg Q6H PRN Administration Pain, Moderate (4-6) Senna 8.6 mg 02/06/19 22:00 02/06/19 21:56 Senokot PO 8.6 mg BID BRITT Administration Sodium Chloride 10 ml 02/04/19 22:00 02/06/19 21:56 Sodium Chloride Flush Syringe 10 Ml IV 10 ml BID BRITT Administration Sodium Chloride 10 ml 02/04/19 14:00 Sodium Chloride Flush Syringe 10 Ml IV PRN PRN LINE FLUSH
[2019-02-07] MEDS: SENOKOT PO SCH ×2 (09:50→22:43)
[2019-02-07] MEDS: PEPCID PO SCH ×2 (09:50→22:43)
[2019-02-07] MEDS: SODIUM CHLORIDE FLUSH SYRINGE 10 ML IV SCH ×2 (09:50→22:43)
--- NOTE | 2019-02-07 15:20 | Progress Note ---
Assessment and Plan Assessment and plan: 78 YO Female with HTN, Multiple Myeloma, Obesity presents to ED for evaluation. Pt states that she has experienced Pain and swelling in her left lower extremity over the past 1 week with worsening symptoms over the past 3 days. Patient was seen and evaluated at [facility] on day [facility] and found to have an extensive DVT in the left lower extremity. DVT extends from the common and deep femoral vein down through the posterior tibial vein. Pt was treated with oral therapeutic anticoagulation and discharged home. Pt has experienced worsening leg pain over the past 1 day [employer]. Pt presents for evaluation. Pt seen and evaluated in ED and found to have symptoms consistent with LLE DVT. IR consulted in ED. Pt initiated on heparin drip. Pt denies fever, chills, CP, Palpitations, NVD, Trauma, Hemoptysis, BRBPR, Skin rash, Productive cough, or recent ill contacts. Iliofemoral DVT: Continue anticoagulation, Follow IR/Vascular Recommendation. Discussed with Nursing staff again about Keeping LOWER EXT ELEVATED. Patient counselling provided Per Vascular, begin to mobilize the patient with physical therapy and also SHIKHA ramirez added. They will re-evaluate and hopefully discharge in a few days Hematology recommends Eliquis on discharge Vertigo: [place] Hallpike Testing, Vestibular Rehab, PT Consulted. Resolved WENDY secondary vasomotor nephropathy: Resolved. stopped fluids. Secondary Coagulopathy: on anticoagulation Multiple Myeloma: Diagnosed 07/17 Continue outpatient management. Hematology input noted "The patient has finished 6 cycles of Velcade, Revlimid, and dexamethasone, and she was going to be on Revlimid 15 mg with dexamethasone on a weekly basis. Revlimid was 3 weeks on, 1 week off. HTN: STABLE Morbid Obesity: Weight loss counselling discussed in detail H/O Obesity Hypoventilation syndrome: outpatient SRINI eval recommended DVT/GI prophy Anticipate discharge in 2-3 days when ok with Vascular. Plan discussed with patient and family also with Vascular/IR team History Interval history: Patient seen and examined, She was admitted with pain of the left lower extremity secondary to progressive DVT. Denies any chest pain nausea vomiting this morning. Denies any further vertigo. Reports some improvement Hospitalist Physical - Physical exam Narrative exam: VITAL SIGNS: Reviewed. GENERAL: The patient appeared well nourished and normally developed. Morbidly obese, Vital signs as documented. HEAD: No signs of head trauma. EYES: Pupils are equal. Extraocular motions intact. EARS: Hearing grossly intact. MOUTH: Oropharynx is normal. NECK: No adenopathy, no JVD. CHEST: Chest with clear breath sounds bilaterally. No wheezes, rales, or rhonchi. CARDIAC: Regular rate and rhythm. S1 and S2, without murmurs, gallops, or rubs. VASCULAR: left lower ext swelling non pitting Edema improving. Peripheral pulses normal and equal in all extremities. ABDOMEN: Soft, without detectable tenderness. No sign of distention. No rebound or guarding, and no masses palpated. Bowel Sounds normal. MUSCULOSKELETAL: Good range of motion of all major joints. Extremities without clubbing, cyanosis. Left lower ext edema, non pitting. Per family swelling is improving. NEUROLOGIC EXAM: Alert and oriented x 3. No focal sensory or strength deficits. Speech normal. Follows commands. PSYCHIATRIC: Mood normal. SKIN: No rash or lesions. - Constitutional Vitals: Temp Pulse Resp BP Pulse Ox 99.1 F 85 20 104/61 97 02/07/19 13:39 02/07/19 13:39 02/07/19 13:39 02/07/19 13:39 02/07/19 13:39 General appearance: Present: no acute distress Results - Labs CBC & Chem 7: 02/06/19 06:00 02/05/19 04:48 Labs: Laboratory Last Values WBC 8.0 K/mm3 (4.5-11.0) 02/05/19 04:48 RBC 3.98 M/mm3 (3.65-5.03) 02/05/19 04:48 Hgb 9.4 gm/dl (10.1-14.3) L 02/06/19 06:00 Hct 29.1 % (30.3-42.9) L 02/06/19 06:00 MCV 76 fl (79-97) L 02/05/19 04:48 MCH 25 pg (28-32) L 02/05/19 04:48 MCHC 33 % (30-34) 02/05/19 04:48 RDW 20.7 % (13.2-15.2) H 02/05/19 04:48 Plt Count 202 K/mm3 (140-440) 02/06/19 06:00 Lymph % (Auto) Lepidopterist 02/05/19 04:48 [place] % (Auto) Lepidopterist 02/05/19 04:48 Eos % (Auto) Lepidopterist 02/05/19 04:48 Baso % (Auto) Lepidopterist 02/05/19 04:48 Lymph # Lepidopterist 02/05/19 04:48 [place] # Lepidopterist 02/05/19 04:48 Eos # Lepidopterist 02/05/19 04:48 Baso # Lepidopterist 02/05/19 04:48 Add Manual Diff Complete 02/05/19 04:48 Total Counted 100 02/05/19 04:48 Seg Neutrophils % Lepidopterist 02/05/19 04:48 Seg Neuts % (Manual) 82.0 % (40.0-70.0) H 02/05/19 04:48 Band Neutrophils % 0 % 02/05/19 04:48 Lymphocytes % (Manual) 10.0 % (13.4-35.0) L 02/05/19 04:48 Reactive Lymphs % (Man) 0 % 02/05/19 04:48 Monocytes % (Manual) 8.0 % (0.0-7.3) H 02/05/19 04:48 Eosinophils % (Manual) 0 % (0.0-4.3) 02/05/19 04:48 Basophils % (Manual) 0 % (0.0-1.8) 02/05/19 04:48 Metamyelocytes % 0 % 02/05/19 04:48 Myelocytes % 0 % 02/05/19 04:48 Promyelocytes % 0 % 02/05/19 04:48 Blast Cells % 0 % 02/05/19 04:48 Nucleated RBC % Not Reportable 02/05/19 04:48 Seg Neutrophils # Lepidopterist 02/05/19 04:48 Seg Neutrophils # Man 6.6 K/mm3 (1.8-7.7) 02/05/19 04:48 Band Neutrophils # 0.0 K/mm3 02/05/19 04:48 Lymphocytes # (Manual) 0.8 K/mm3 (1.2-5.4) L 02/05/19 04:48 Abs React Lymphs (Man) 0.0 K/mm3 02/05/19 04:48 Monocytes # (Manual) 0.6 K/mm3 (0.0-0.8) 02/05/19 04:48 Eosinophils # (Manual) 0.0 K/mm3 (0.0-0.4) 02/05/19 04:48 Basophils # (Manual) 0.0 K/mm3 (0.0-0.1) 02/05/19 04:48 Metamyelocytes # 0.0 K/mm3 02/05/19 04:48 Myelocytes # 0.0 K/mm3 02/05/19 04:48 Promyelocytes # 0.0 K/mm3 02/05/19 04:48 Blast Cells # 0.0 K/mm3 02/05/19 04:48 WBC Morphology Not Reportable 02/05/19 04:48 Hypersegmented Neuts Not Reportable 02/05/19 04:48 Hyposegmented Neuts Not Reportable 02/05/19 04:48 Hypogranular Neuts Not Reportable 02/05/19 04:48 Smudge Cells Not Reportable 02/05/19 04:48 Toxic Granulation Not Reportable 02/05/19 04:48 Toxic Vacuolation Not Reportable 02/05/19 04:48 Dohle Bodies Not Reportable 02/05/19 04:48 Pelger-Huet Anomaly Not Reportable 02/05/19 04:48 Irma Rods Not Reportable 02/05/19 04:48 Platelet Estimate Consistent w auto 02/05/19 04:48 Clumped Platelets Not Reportable 02/05/19 04:48 Plt Clumps, EDTA Not Reportable 02/05/19 04:48 Large Platelets Not Reportable 02/05/19 04:48 Giant Platelets Not Reportable 02/05/19 04:48 Platelet Satelliting Not Reportable 02/05/19 04:48 Plt Morphology Comment Not Reportable 02/05/19 04:48 RBC Morphology Not Reportable 02/05/19 04:48 Dimorphic RBCs Not Reportable 02/05/19 04:48 Polychromasia Not Reportable 02/05/19 04:48 Hypochromasia 1+ 02/05/19 04:48 Poikilocytosis Not Reportable 02/05/19 04:48 Anisocytosis 1+ 02/05/19 04:48 Microcytosis Not Reportable 02/05/19 04:48 Macrocytosis Not Reportable 02/05/19 04:48 Spherocytes Not Reportable 02/05/19 04:48 Pappenheimer Bodies Not Reportable 02/05/19 04:48 Sickle Cells Not Reportable 02/05/19 04:48 Target Cells 1+ 02/05/19 04:48 Tear Drop Cells Few 02/05/19 04:48 Ovalocytes 1+ 02/05/19 04:48 Helmet Cells Not Reportable 02/05/19 04:48 [place] Bodies Not Reportable 02/05/19 04:48 [place] Rings Not Reportable 02/05/19 04:48 [place] Cells Not Reportable 02/05/19 04:48 Bite Cells Not Reportable 02/05/19 04:48 Crenated Cell Not Reportable 02/05/19 04:48 Elliptocytes Not Reportable 02/05/19 04:48 Acanthocytes (Spur) Not Reportable 02/05/19 04:48 Rouleaux Not Reportable 02/05/19 04:48 Hemoglobin C Crystals Not Reportable 02/05/19 04:48 Schistocytes Not Reportable 02/05/19 04:48 Malaria parasites Not Reportable 02/05/19 04:48 Angel Bodies Not Reportable 02/05/19 04:48 Hem Pathologist Commnt No 02/05/19 04:48 PT 19.6 Sec. (12.2-14.9) H 02/04/19 10:57 INR 1.55 (0.87-1.13) H 02/04/19 10:57 APTT 32.0 Sec. (24.2-36.6) 02/05/19 10:12 Heparin Anti-Xa Level 0.66 U.I./ml (0.3-0.7) 02/06/19 19:43 Sodium 136 mmol/L (137-145) L 02/05/19 04:48 Potassium 3.9 mmol/L (3.6-5.0) 02/05/19 04:48 Chloride 101.5 mmol/L (98-107) 02/05/19 04:48 Carbon Dioxide 21 mmol/L (22-30) L 02/05/19 04:48 Anion Gap 17 mmol/L 02/05/19 04:48 BUN 37 mg/dL (7-17) H 02/05/19 04:48 Creatinine 1.1 mg/dL (0.7-1.2) 02/05/19 04:48 Estimated GFR 58 ml/min 02/05/19 04:48 BUN/Creatinine Ratio 34 % 02/05/19 04:48 Glucose 91 mg/dL (65-100) 02/05/19 04:48 Calcium 8.7 mg/dL (8.4-10.2) 02/05/19 04:48 Total Bilirubin 0.40 mg/dL (0.1-1.2) 02/04/19 10:57 AST 8 units/L (5-40) 02/04/19 10:57 ALT 7 units/L (7-56) 02/04/19 10:57 Alkaline Phosphatase 61 units/L (35-129) 02/04/19 10:57 Total Protein 7.0 g/dL (6.3-8.2) 02/04/19 10:57 Albumin 3.6 g/dL (3.9-5) L 02/04/19 10:57 Albumin/Globulin Ratio 1.1 % 02/04/19 10:57 Nutrition/Malnutrition Assess - Dietary Evaluation Nutrition/Malnutrition Findings: Nutrition Notes Start: 02/05/19 13:49 Freq: Status: Active Protocol: Document 02/07/19 15:06 [facility] (Rec: 02/07/19 15:09 [facility] SRW- [id number]) Nutrition Notes Initial or Follow up Brief Note Subjective/Other Information Pt consumed 50% of grilled chicken sandwich and 25% of strawberry muffin for lunch today. She looks better today . Encouraged her to keep eating at each meal. Nutrition Intervention Follow-Up By: 02/10/19 Additional Comments F/U: intakes, wt
[2019-02-08] MEDS: ROXICODONE PO PRN ×3 (03:48→17:17)
[2019-02-08 05:12] LABS: Hematocrit 28.2 % (30.3-42.9)
--- NOTE | 2019-02-08 08:38 | Hem/Onc Progress Note ---
Assessment and Plan 1. Deep venous thrombosis. As per the information available, there was no PE at [place]. 2. History of multiple myeloma. 3. For the deep venous thrombosis, she is on heparin drip. Vascular Team has seen the patient. Once there is a plan for oral change, I would prefer Eliquis. 4. For multiple myeloma. The patient has finished 6 cycles of Velcade, Revlimid, and dexamethasone, and she was going to be on Revlimid 15 mg with dexamethasone on a weekly basis. Revlimid was 3 weeks on, 1 week off. 5. The M-spike was 0.6. 6. Multiple myeloma was diagnosed in 06/2018. 7. Mild anemia. 8. History of hypertension. 9. In the notes, mention of obesity-hypoventilation syndrome. 10. I will follow the patient during inpatient stay and then in the clinic setting. In December, the Serum iron was 76 and serum ferritin was 369. 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 It appears no intervention is planned - oral eliquis and OP follow up an option 02/08 - d/w dr bui - OP follow up - eliqis - termination clerk anticoagulation - Patient Problems (1) Deep vein thrombosis (DVT) of distal vein of left lower extremity Current Visit: Yes Status: Acute Qualifiers: Chronicity: acute Qualified Code(s): I82.4Z2 - Acute embolism and thrombosis of unspecified deep veins of left distal lower extremity (2) Myeloma Current Visit: No Status: Acute Qualifiers: Multiple myeloma remission status: not in remission Qualified Code(s): C90.00 - Multiple myeloma not having achieved remission Subjective Date of service: 02/08/19 Principal diagnosis: dvt and myeloma Objective - Constitutional Vitals: Last Vital Signs Temp 98.6 F 02/08/19 07:43 Pulse 81 02/08/19 07:43 Resp 20 02/08/19 07:43 BP 120/63 02/08/19 07:43 Pulse Ox 98 02/08/19 07:43 Pain Intensity (0-10): denies any pain (at rest) General appearance: no acute distress Performance status: 3-limited selfcare - EENT Eyes: EOM intact ENT: clear oral mucosa Lymph node exam: negative cervical - Neck Neck: normal ROM - Respiratory Respiratory effort: Positive: normal Respiratory: bilateral: CTA - Cardiovascular Heart Sounds: Present: S1 & S2 Extremity abnormal: edema (left leg) - Gastrointestinal General gastrointestinal: Present: soft, non-tender Rectal Exam: deferred - Genitourinary Female genitourinary: Present: deferred - Integumentary Integumentary: warm - Musculoskeletal Musculoskeletal: strength equal bilaterally - Neurologic Neurologic: moves all extremities - Psychiatric Psychiatric: appropriate mood/affect - Labs Lab Results: Laboratory Results - last 24 hr 02/07/19 02/08/19 21:25 04:34 Hgb 9.0 L Hct 28.2 L Plt Count 220 Heparin Anti-Xa Level 0.33 Medications & Allergies - Medications Allergies/Adverse Reactions: Allergies Penicillins Allergy (Unverified 02/13/17 11:59) Swelling STEROIDS Adverse Reaction (Uncoded 02/13/17 12:01) Dizziness Home Medications: Home Medications Medication Instructions Recorded Confirmed Last Taken Type Dexamethasone [Decadron] 4 mg PO Q12H 02/04/19 02/04/19 Unknown History Docusate Sodium [Doc-Q-Lace] 100 mg PO DAILY 02/04/19 02/04/19 Unknown History Furosemide [Lasix TAB] 20 mg PO QDAY 02/04/19 02/04/19 Unknown History Lenalidomide [Revlimid] 15 mg PO QDAY 02/04/19 02/04/19 Unknown History Lisinopril [Zestril TAB] 20 mg PO QDAY 02/04/19 02/04/19 Unknown History Metoprolol [Lopressor TAB] 25 mg PO BID 02/04/19 02/04/19 Unknown History Pravastatin [Pravachol] 80 mg PO QHS 02/04/19 02/04/19 Unknown History Meclizine [Antivert] 25 mg PO BID PRN 02/07/19 02/07/19 Unknown History Apixaban [Eliquis] 5 mg PO DAILY #30 tablet 02/08/19 Unknown Rx Sennosides Tab [Senokot] 8.6 mg PO BID #30 tablet 02/08/19 Unknown Rx oxyCODONE [Roxicodone TAB] 10 mg PO Q6H PRN #14 tablet 02/08/19 Unknown Rx Active Medications: Generic Name Dose Route Start Last Admin Trade Name Freq PRN Reason Stop Dose Admin Acetaminophen 650 mg 02/04/19 14:00 02/07/19 08:41 Tylenol PO 650 mg Q4H PRN Administration Pain MILD(1-3)/Fever >100.5/JOSHI Albuterol 2.5 mg 02/04/19 14:00 Proventil IH Q4HRT PRN Shortness Of Breath Famotidine 10 mg 02/04/19 22:00 02/07/19 22:43 Pepcid PO 10 mg BID BRITT Administration Heparin Sodium/Sodium Chloride 25,000 unit in 500 mls @ 30 mls/hr 02/04/19 14:00 02/07/19 21:30 Heparin/ 0.45% Nacl-25,000 Unit/500 Ml IV 700 units/hr TITR BRITT 14 mls/hr Titration Protocol 1,500 UNITS/HR Ondansetron HCl 4 mg 02/04/19 14:00 Zofran IV Q8H PRN Nausea And Vomiting Oxycodone HCl 10 mg 02/06/19 12:17 02/08/19 03:48 Roxicodone PO 10 mg Q6H PRN Administration Pain, Moderate (4-6) Senna 8.6 mg 02/06/19 22:00 02/07/19 22:43 Senokot PO 8.6 mg BID BRITT Administration Sodium Chloride 10 ml 02/04/19 22:00 02/07/19 22:43 Sodium Chloride Flush Syringe 10 Ml IV 10 ml BID BRITT Administration Sodium Chloride 10 ml 02/04/19 14:00 Sodium Chloride Flush Syringe 10 Ml IV PRN PRN LINE FLUSH
[2019-02-08] MEDS: PEPCID PO SCH ×2 (09:17→22:23)
[2019-02-08] MEDS: SENOKOT PO SCH ×2 (09:17→22:23)
[2019-02-08] MEDS: HEPARIN/ 0.45% NACL-25,000 UNIT/500 ML 25,000 UNIT/500 ML BAG IV SCH (09:18)
[2019-02-08] MEDS: SODIUM CHLORIDE FLUSH SYRINGE 10 ML IV SCH ×2 (09:18→22:24)
--- NOTE | 2019-02-08 11:04 | Progress Note ---
Assessment and Plan Patient will need to ambulate with physical therapy. The patient may need a rolling walker for home use to assist with ambulation. Once she is able to resume her activities of daily living, the patient may be discharged home from a vascular standpoint. No intervention is planned at this time. Patient will need to be discharged home on Eliquis. Following her treatment dose, the patient will likely need to be placed on lifelong maintenance dose. The patient can follow up in our office in one to 2 weeks following discharge. [facility] [place] [address] [place] [address] Subjective Date of service: 02/08/19 Principal diagnosis: DVT Interval history: Patient with right lower extremity DVT. SHIKHA hose in place. The patient's leg continues to improve in appearance. She has ambulated on her own to the restroom. Objective - Constitutional Vitals: Vital Signs - 12hr 02/08/19 02/08/19 02/08/19 02:40 02:42 07:43 Temperature 98.6 F 98.6 F Pulse Rate 89 81 Respiratory 20 20 Rate Blood Pressure 120/63 Blood Pressure 110/69 [Left] O2 Sat by Pulse 97 98 Oximetry 02/08/19 10:00 Temperature Pulse Rate 81 Respiratory Rate Blood Pressure Blood Pressure [Left] O2 Sat by Pulse Oximetry General appearance: Present: no acute distress, obese - EENT Eyes: EOM intact ENT: hearing intact - Neck Neck: supple, normal ROM - Respiratory Respiratory effort: normal - Breasts Breasts: deferred Extremities: abnormal Extremity abnormal: edema - Gastrointestinal General gastrointestinal: Present: deferred Rectal Exam: deferred - Genitourinary Female genitourinary: deferred - Psychiatric Psychiatric: appropriate mood/affect, cooperative - Labs CBC & Chem 7: 02/08/19 04:34 02/05/19 04:48 Labs: Abnormal lab results 02/08/19 Range/Units 04:34 Hgb 9.0 L (10.1-14.3) gm/dl Hct 28.2 L (30.3-42.9) % Medications & Allergies - Medications Allergies/Adverse Reactions: Allergies Penicillins Allergy (Unverified 02/13/17 11:59) Swelling STEROIDS Adverse Reaction (Uncoded 02/13/17 12:01) Dizziness Home Medications: Home Medications Medication Instructions Recorded Confirmed Last Taken Type Dexamethasone [Decadron] 4 mg PO Q12H 02/04/19 02/04/19 Unknown History Docusate Sodium [Doc-Q-Lace] 100 mg PO DAILY 02/04/19 02/04/19 Unknown History Furosemide [Lasix] 20 mg PO QDAY 02/04/19 02/04/19 Unknown History Lenalidomide [Revlimid] 15 mg PO QDAY 02/04/19 02/04/19 Unknown History Lisinopril [Zestril] 20 mg PO QDAY 02/04/19 02/04/19 Unknown History Metoprolol [Lopressor] 25 mg PO BID 02/04/19 02/04/19 Unknown History Pravastatin [Pravachol] 80 mg PO QHS 02/04/19 02/04/19 Unknown History Apixaban [Eliquis] 5 mg PO DAILY 02/07/19 02/07/19 Unknown History Meclizine [Antivert] 25 mg PO BID PRN 02/07/19 02/07/19 Unknown History Active Medications: Generic Name Dose Route Start Last Admin Trade Name Freq PRN Reason Stop Dose Admin Acetaminophen 650 mg 02/04/19 14:00 02/07/19 08:41 Tylenol PO 650 mg Q4H PRN Administration Pain MILD(1-3)/Fever >100.5/JOSHI Albuterol 2.5 mg 02/04/19 14:00 Proventil IH Q4HRT PRN Shortness Of Breath Famotidine 10 mg 02/04/19 22:00 02/08/19 09:17 Pepcid PO 10 mg BID BRITT Administration Heparin Sodium/Sodium Chloride 25,000 unit in 500 mls @ 30 mls/hr 02/04/19 14:00 02/08/19 09:18 Heparin/ 0.45% Nacl-25,000 Unit/500 Ml IV 700 units/hr TITR BRITT 14 mls/hr Administration Protocol 1,500 UNITS/HR Ondansetron HCl 4 mg 02/04/19 14:00 Zofran IV Q8H PRN Nausea And Vomiting Oxycodone HCl 10 mg 02/06/19 12:17 02/08/19 03:48 Roxicodone PO 10 mg Q6H PRN Administration Pain, Moderate (4-6) Senna 8.6 mg 02/06/19 22:00 02/08/19 09:17 Senokot PO 8.6 mg BID BRITT Administration Sodium Chloride 10 ml 02/04/19 22:00 02/08/19 09:18 Sodium Chloride Flush Syringe 10 Ml IV 10 ml BID BRITT Administration Sodium Chloride 10 ml 02/04/19 14:00 Sodium Chloride Flush Syringe 10 Ml IV PRN PRN LINE FLUSH
--- NOTE | 2019-02-08 12:35 | Progress Note ---
Assessment and Plan Assessment and plan: 78 YO Female with HTN, Multiple Myeloma, Obesity presents to ED for evaluation. Pt states that she has experienced Pain and swelling in her left lower extremity over the past 1 week with worsening symptoms over the past 3 days. Patient was seen and evaluated at [facility] on day BUS BOY and found to have an extensive DVT in the left lower extremity. DVT extends from the common and deep femoral vein down through the posterior tibial vein. Pt was treated with oral therapeutic anticoagulation and discharged home. Pt has experienced worsening leg pain over the past 1 day BUS BOY. Pt presents for evaluation. Pt seen and evaluated in ED and found to have symptoms consistent with LLE DVT. IR consulted in ED. Pt initiated on heparin drip. Pt denies fever, chills, CP, Palpitations, NVD, Trauma, Hemoptysis, BRBPR, Skin rash, Productive cough, or recent ill contacts. Iliofemoral DVT: Continue anticoagulation, Follow IR/Vascular Recommendation. Discussed with Nursing staff again about Keeping LOWER EXT ELEVATED. Patient counselling provided Per Vascular, begin to mobilize the patient with physical therapy and also SHIKHA hose added. Patient now ambulating, Shikha hose is in place, continue elevated Lower ext Hematology recommends Eliquis on discharge Vertigo: [place] Hallpike Testing, Vestibular Rehab, PT Consulted. intermittent and chronic, no new medication WENDY secondary vasomotor nephropathy: Resolved. stopped fluids. Secondary Coagulopathy: on anticoagulation Multiple Myeloma: Diagnosed 07/17 Continue outpatient management. Hematology input noted "The patient has finished 6 cycles of Velcade, Revlimid, and dexamethasone, and she was going to be on Revlimid 15 mg with dexamethasone on a weekly basis. Revlimid was 3 weeks on, 1 week off. HTN: STABLE Morbid Obesity: Weight loss counselling discussed in detail H/O Obesity Hypoventilation syndrome: outpatient SRINI eval recommended DVT/GI prophy Anticipate discharge in In am Continue outpatient follow up with Vascular and also with Gwen. Will be discharged on Eliquis And this will be lifelong per IR Plan discussed with patient and family also with Vascular/IR team History Interval history: Patient seen and examined, Reports improvement and also very little pain today. Family at bedside Hospitalist Physical - Physical exam Narrative exam: VITAL SIGNS: Reviewed. GENERAL: The patient appeared well nourished and normally developed. Morbidly obese, Vital signs as documented. HEAD: No signs of head trauma. EYES: Pupils are equal. Extraocular motions intact. EARS: Hearing grossly intact. MOUTH: Oropharynx is normal. NECK: No adenopathy, no JVD. CHEST: Chest with clear breath sounds bilaterally. No wheezes, rales, or rhonchi. CARDIAC: Regular rate and rhythm. S1 and S2, without murmurs, gallops, or rubs. VASCULAR: left lower ext swelling non pitting Edema improving. Peripheral pulses normal and equal in all extremities. ABDOMEN: Soft, without detectable tenderness. No sign of distention. No rebound or guarding, and no masses palpated. Bowel Sounds normal. MUSCULOSKELETAL: Good range of motion of all major joints. Extremities without clubbing, cyanosis. Left lower ext edema, non pitting. Per family swelling is improving. NEUROLOGIC EXAM: Alert and oriented x 3. No focal sensory or strength deficits. Speech normal. Follows commands. PSYCHIATRIC: Mood normal. SKIN: No rash or lesions. - Constitutional Vitals: Temp Pulse Resp BP Pulse Ox 98.6 F 81 20 120/63 98 02/08/19 07:43 02/08/19 10:00 02/08/19 07:43 02/08/19 07:43 02/08/19 07:43 General appearance: Present: no acute distress, obese Results - Labs CBC & Chem 7: 02/08/19 04:34 02/05/19 04:48 Labs: Laboratory Last Values WBC 8.0 K/mm3 (4.5-11.0) 02/05/19 04:48 RBC 3.98 M/mm3 (3.65-5.03) 02/05/19 04:48 Hgb 9.0 gm/dl (10.1-14.3) L 02/08/19 04:34 Hct 28.2 % (30.3-42.9) L 02/08/19 04:34 MCV 76 fl (79-97) L 02/05/19 04:48 MCH 25 pg (28-32) L 02/05/19 04:48 MCHC 33 % (30-34) 02/05/19 04:48 RDW 20.7 % (13.2-15.2) H 02/05/19 04:48 Plt Count 220 K/mm3 (140-440) 02/08/19 04:34 Lymph % (Auto) Orthodontic Technician Assistant 02/05/19 04:48 Lawrence % (Auto) Orthodontic Technician Assistant 02/05/19 04:48 Eos % (Auto) Orthodontic Technician Assistant 02/05/19 04:48 Baso % (Auto) Orthodontic Technician Assistant 02/05/19 04:48 Lymph # Orthodontic Technician Assistant 02/05/19 04:48 Lawrence # Orthodontic Technician Assistant 02/05/19 04:48 Eos # Orthodontic Technician Assistant 02/05/19 04:48 Baso # Orthodontic Technician Assistant 02/05/19 04:48 Add Manual Diff Complete 02/05/19 04:48 Total Counted 100 02/05/19 04:48 Seg Neutrophils % Orthodontic Technician Assistant 02/05/19 04:48 Seg Neuts % (Manual) 82.0 % (40.0-70.0) H 02/05/19 04:48 Band Neutrophils % 0 % 02/05/19 04:48 Lymphocytes % (Manual) 10.0 % (13.4-35.0) L 02/05/19 04:48 Reactive Lymphs % (Man) 0 % 02/05/19 04:48 Monocytes % (Manual) 8.0 % (0.0-7.3) H 02/05/19 04:48 Eosinophils % (Manual) 0 % (0.0-4.3) 02/05/19 04:48 Basophils % (Manual) 0 % (0.0-1.8) 02/05/19 04:48 Metamyelocytes % 0 % 02/05/19 04:48 Myelocytes % 0 % 02/05/19 04:48 Promyelocytes % 0 % 02/05/19 04:48 Blast Cells % 0 % 02/05/19 04:48 Nucleated RBC % Not Reportable 02/05/19 04:48 Seg Neutrophils # Orthodontic Technician Assistant 02/05/19 04:48 Seg Neutrophils # Man 6.6 K/mm3 (1.8-7.7) 02/05/19 04:48 Band Neutrophils # 0.0 K/mm3 02/05/19 04:48 Lymphocytes # (Manual) 0.8 K/mm3 (1.2-5.4) L 02/05/19 04:48 Abs React Lymphs (Man) 0.0 K/mm3 02/05/19 04:48 Monocytes # (Manual) 0.6 K/mm3 (0.0-0.8) 02/05/19 04:48 Eosinophils # (Manual) 0.0 K/mm3 (0.0-0.4) 02/05/19 04:48 Basophils # (Manual) 0.0 K/mm3 (0.0-0.1) 02/05/19 04:48 Metamyelocytes # 0.0 K/mm3 02/05/19 04:48 Myelocytes # 0.0 K/mm3 02/05/19 04:48 Promyelocytes # 0.0 K/mm3 02/05/19 04:48 Blast Cells # 0.0 K/mm3 02/05/19 04:48 WBC Morphology Not Reportable 02/05/19 04:48 Hypersegmented Neuts Not Reportable 02/05/19 04:48 Hyposegmented Neuts Not Reportable 02/05/19 04:48 Hypogranular Neuts Not Reportable 02/05/19 04:48 Smudge Cells Not Reportable 02/05/19 04:48 Toxic Granulation Not Reportable 02/05/19 04:48 Toxic Vacuolation Not Reportable 02/05/19 04:48 Dohle Bodies Not Reportable 02/05/19 04:48 Pelger-Huet Anomaly Not Reportable 02/05/19 04:48 Irma Rods Not Reportable 02/05/19 04:48 Platelet Estimate Consistent w auto 02/05/19 04:48 Clumped Platelets Not Reportable 02/05/19 04:48 Plt Clumps, EDTA Not Reportable 02/05/19 04:48 Large Platelets Not Reportable 02/05/19 04:48 Giant Platelets Not Reportable 02/05/19 04:48 Platelet Satelliting Not Reportable 02/05/19 04:48 Plt Morphology Comment Not Reportable 02/05/19 04:48 RBC Morphology Not Reportable 02/05/19 04:48 Dimorphic RBCs Not Reportable 02/05/19 04:48 Polychromasia Not Reportable 02/05/19 04:48 Hypochromasia 1+ 02/05/19 04:48 Poikilocytosis Not Reportable 02/05/19 04:48 Anisocytosis 1+ 02/05/19 04:48 Microcytosis Not Reportable 02/05/19 04:48 Macrocytosis Not Reportable 02/05/19 04:48 Spherocytes Not Reportable 02/05/19 04:48 Pappenheimer Bodies Not Reportable 02/05/19 04:48 Sickle Cells Not Reportable 02/05/19 04:48 Target Cells 1+ 02/05/19 04:48 Tear Drop Cells Few 02/05/19 04:48 Ovalocytes 1+ 02/05/19 04:48 Helmet Cells Not Reportable 02/05/19 04:48 Irene-Louann Bodies Not Reportable 02/05/19 04:48 [place] Rings Not Reportable 02/05/19 04:48 [place] Cells Not Reportable 02/05/19 04:48 Bite Cells Not Reportable 02/05/19 04:48 Crenated Cell Not Reportable 02/05/19 04:48 Elliptocytes Not Reportable 02/05/19 04:48 Acanthocytes (Spur) Not Reportable 02/05/19 04:48 Rouleaux Not Reportable 02/05/19 04:48 Hemoglobin C Crystals Not Reportable 02/05/19 04:48 Schistocytes Not Reportable 02/05/19 04:48 Malaria parasites Not Reportable 02/05/19 04:48 Angel Bodies Not Reportable 02/05/19 04:48 Hem Pathologist Commnt No 02/05/19 04:48 PT 19.6 Sec. (12.2-14.9) H 02/04/19 10:57 INR 1.55 (0.87-1.13) H 02/04/19 10:57 APTT 32.0 Sec. (24.2-36.6) 02/05/19 10:12 Heparin Anti-Xa Level 0.33 U.I./ml (0.3-0.7) 02/07/19 21:25 Sodium 136 mmol/L (137-145) L 02/05/19 04:48 Potassium 3.9 mmol/L (3.6-5.0) 02/05/19 04:48 Chloride 101.5 mmol/L (98-107) 02/05/19 04:48 Carbon Dioxide 21 mmol/L (22-30) L 02/05/19 04:48 Anion Gap 17 mmol/L 02/05/19 04:48 BUN 37 mg/dL (7-17) H 02/05/19 04:48 Creatinine 1.1 mg/dL (0.7-1.2) 02/05/19 04:48 Estimated GFR 58 ml/min 02/05/19 04:48 BUN/Creatinine Ratio 34 % 02/05/19 04:48 Glucose 91 mg/dL (65-100) 02/05/19 04:48 Calcium 8.7 mg/dL (8.4-10.2) 02/05/19 04:48 Total Bilirubin 0.40 mg/dL (0.1-1.2) 02/04/19 10:57 AST 8 units/L (5-40) 02/04/19 10:57 ALT 7 units/L (7-56) 02/04/19 10:57 Alkaline Phosphatase 61 units/L (35-129) 02/04/19 10:57 Total Protein 7.0 g/dL (6.3-8.2) 02/04/19 10:57 Albumin 3.6 g/dL (3.9-5) L 02/04/19 10:57 Albumin/Globulin Ratio 1.1 % 02/04/19 10:57 Nutrition/Malnutrition Assess - Dietary Evaluation Nutrition/Malnutrition Findings: Nutrition Notes Start: 02/05/19 13:49 Freq: Status: Active Protocol: Document 02/07/19 15:06 [facility] (Rec: 02/07/19 15:09 [facility] [id number]) Nutrition Notes Initial or Follow up Brief Note Subjective/Other Information Pt consumed 50% of grilled chicken sandwich and 25% of strawberry muffin for lunch today. She looks better today . Encouraged her to keep eating at each meal. Nutrition Intervention Follow-Up By: 02/10/19 Additional Comments F/U: intakes, wt
--- NOTE | 2019-02-08 12:39 | Discharge Summary ---
Providers - Providers Date of Admission: 02/04/19 14:00 Attending physician: LAWRENCE GONZALEZ MD 02/04/19 13:51 Consult to Physician [CONS] Routine Comment: Consulting Provider: VIV ARAGON Physician Instructions: Reason For Exam: LLE DVT 02/04/19 14:37 Physical Therapy Evaluation and Treat [CONS] Routine Comment: Christal hallpike, Vestibular Rehab Reason For Exam: Vertigo 02/05/19 11:36 Consult to Physician [CONS] Routine Comment: Consulting Provider: JULI CARDOSO Physician Instructions: Reason For Exam: DVT with hyderlying hx of Multiple myeloma 02/07/19 09:32 Physical Therapy Evaluation and Treat [CONS] Routine Comment: Reason For Exam: LLE DVT - mobility Primary care physician: LAURA NICOLE Hospitalization Reason for admission: dvt Condition: Stable Hospital course: 78 YO Female with HTN, Multiple Myeloma, Obesity presents to ED for evaluation. Pt states that she has experienced Pain and swelling in her left lower extremity over the past 1 week with worsening symptoms over the past 3 days. 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 DVT extends from the common and deep femoral vein down through the posterior tibial vein. Pt was treated with oral therapeutic anticoagulation and discharged home. 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 Pt presents for evaluation. Pt seen and evaluated in ED and found to have symptoms consistent with LLE DVT. IR consulted in ED. Pt initiated on heparin drip. Pt denies fever, chills, CP, Palpitations, NVD, Trauma, Hemoptysis, BRBPR, Skin rash, Productive cough, or recent ill contacts. Iliofemoral DVT: Continue anticoagulation, Follow IR/Vascular Recommendation. Discussed with Nursing staff again about Keeping LOWER EXT ELEVATED. Patient counselling provided Per Vascular, begin to mobilize the patient with physical therapy and also SHIKHA hose added. Patient now ambulating, Shikha hose is in place, continue elevated Lower ext Hematology recommends Eliquis on discharge Vertigo: Christal Hallpike Testing, Vestibular Rehab, PT Consulted. intermittent and chronic, no new medication WENDY secondary vasomotor nephropathy: Resolved. stopped fluids. Secondary Coagulopathy: on anticoagulation Multiple Myeloma: Diagnosed 07/17 Continue outpatient management. Hematology input noted "The patient has finished 6 cycles of Velcade, Revlimid, and dexamethasone, and she was going to be on Revlimid 15 mg with dexamethasone on a weekly basis. Revlimid was 3 weeks on, 1 week off. HTN: STABLE Morbid Obesity: Weight loss counselling discussed in detail H/O Obesity Hypoventilation syndrome: outpatient SRINI eval recommended Continue outpatient follow up with Vascular and also with Gwen. Will be discharged on Eliquis And this will be lifelong per IR Plan discussed with patient and family also with Vascular/IR team Disposition: [id number] HOME UNDER HOME HL[facility] Time spent for discharge: 35 mins Core Measure Documentation - Palliative Care Palliative Care/ Comfort Measures: Not Applicable - Core Measures Any of the following diagnoses?: none - VTE Discharge Requirements Deep Vein Thrombosis/Pulmonary Embolism Present on Admission: Yes Has pt received <5 days of overlap therapy or INR<2.0: Yes Anticoagulant overlap therapy prescribed at discharge: Yes Exam - Physical Exam Narrative exam: VITAL SIGNS: Reviewed. GENERAL: The patient appeared well nourished and normally developed. Morbidly obese, Vital signs as documented. HEAD: No signs of head trauma. EYES: Pupils are equal. Extraocular motions intact. EARS: Hearing grossly intact. MOUTH: Oropharynx is normal. NECK: No adenopathy, no JVD. CHEST: Chest with clear breath sounds bilaterally. No wheezes, rales, or rhonchi. CARDIAC: Regular rate and rhythm. S1 and S2, without murmurs, gallops, or rubs. VASCULAR: left lower ext swelling non pitting Edema improving. Peripheral pulses normal and equal in all extremities. ABDOMEN: Soft, without detectable tenderness. No sign of distention. No rebound or guarding, and no masses palpated. Bowel Sounds normal. MUSCULOSKELETAL: Good range of motion of all major joints. Extremities without clubbing, cyanosis. Left lower ext edema, non pitting. Per family swelling is improving. NEUROLOGIC EXAM: Alert and oriented x 3. No focal sensory or strength deficits. Speech normal. Follows commands. PSYCHIATRIC: Mood normal. SKIN: No rash or lesions. - Constitutional Vitals: Temp Pulse Resp BP Pulse Ox 98.6 F 81 20 120/63 98 02/08/19 07:43 02/08/19 10:00 02/08/19 07:43 02/08/19 07:43 02/08/19 07:43 Plan Activity: advance as tolerated, fall precautions Diet: low fat Special Instructions: record daily weights, record daily BP diary Additional Instructions: Follow up with Dr Johns. [facility] [place]. [address] [place] [address]. [phone] Follow up with: LAURA NICOLE MD [Primary Care Provider] - 3-5 Days JULI CARDOSO MD [Staff Physician] - 7 Days Prescriptions: Apixaban [Eliquis] 5 mg PO DAILY #30 tablet oxyCODONE [Roxicodone TAB] 10 mg PO Q6H PRN #14 tablet PRN Reason: Pain, Moderate (4-6) Sennosides Tab [Senokot] 8.6 mg PO BID #30 tablet
[2019-02-09] MEDS: ROXICODONE PO PRN (06:30)
--- NOTE | 2019-02-09 07:34 | Hem/Onc Progress Note ---
Assessment and Plan 1. Deep venous thrombosis. As per the information available, there was no PE at [facility]. 2. History of multiple myeloma. 3. For the deep venous thrombosis, she is on heparin drip. Vascular Team has seen the patient. Once there is a plan for oral change, I would prefer Eliquis. 4. For multiple myeloma. The patient has finished 6 cycles of Velcade, Revlimid, and dexamethasone, and she was going to be on Revlimid 15 mg with dexamethasone on a weekly basis. Revlimid was 3 weeks on, 1 week off. 5. The M-spike was 0.6. 6. Multiple myeloma was diagnosed in 06/2018. 7. Mild anemia. 8. History of hypertension. 9. In the notes, mention of obesity-hypoventilation syndrome. 10. I will follow the patient during inpatient stay and then in the clinic setting. In December, the Serum iron was 76 and serum ferritin was 369. 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 02/09 - pt wants to go home ct revlimid - dexa for myeloma and eliquis for DVT - Patient Problems (1) Deep vein thrombosis (DVT) of distal vein of left lower extremity Current Visit: Yes Status: Acute Qualifiers: Chronicity: acute Qualified Code(s): I82.4Z2 - Acute embolism and thrombosis of unspecified deep veins of left distal lower extremity (2) Myeloma Current Visit: No Status: Acute Qualifiers: Multiple myeloma remission status: not in remission Qualified Code(s): C90.00 - Multiple myeloma not having achieved remission Subjective Date of service: 02/09/19 Principal diagnosis: dvt and myeloma Interval history: wants to go home Objective - Constitutional Vitals: Last Vital Signs Temp 98.1 F 02/09/19 03:02 Pulse 80 02/09/19 03:02 Resp 20 02/09/19 06:30 BP 140/79 02/09/19 03:02 Pulse Ox 100 02/09/19 03:02 Pain Intensity (0-10): denies any pain General appearance: no acute distress Performance status: 3-limited selfcare - EENT ENT: clear oral mucosa Lymph node exam: negative cervical - Neck Neck: normal ROM - Respiratory Respiratory effort: Positive: normal Respiratory: negative: CTA - Cardiovascular Heart Sounds: Present: S1 & S2 Extremity abnormal: edema (left leg) - Gastrointestinal General gastrointestinal: Present: soft, non-tender Rectal Exam: deferred - Genitourinary Female genitourinary: Present: deferred - Musculoskeletal Musculoskeletal: other (left leg heavy) - Neurologic Neurologic: moves all extremities - Psychiatric Psychiatric: appropriate mood/affect - Labs Lab Results: Laboratory Results - last 24 hr 02/08/19 02/09/19 21:23 06:30 Heparin Anti-Xa Level 0.24 L 0.28 L Medications & Allergies - Medications Allergies/Adverse Reactions: Allergies Penicillins Allergy (Severe, Verified 02/09/19 06:50) Swelling Home Medications: Home Medications Medication Instructions Recorded Confirmed Last Taken Type Dexamethasone [Decadron] 4 mg PO Q12H 02/04/19 02/04/19 Unknown History Docusate Sodium [Doc-Q-Lace] 100 mg PO DAILY 02/04/19 02/04/19 Unknown History Furosemide [Lasix TAB] 20 mg PO QDAY 02/04/19 02/04/19 Unknown History Lenalidomide [Revlimid] 15 mg PO QDAY 02/04/19 02/04/19 Unknown History Lisinopril [Zestril TAB] 20 mg PO QDAY 02/04/19 02/04/19 Unknown History Metoprolol [Lopressor TAB] 25 mg PO BID 02/04/19 02/04/19 Unknown History Pravastatin [Pravachol] 80 mg PO QHS 02/04/19 02/04/19 Unknown History Meclizine [Antivert] 25 mg PO BID PRN 02/07/19 02/07/19 Unknown History Apixaban [Eliquis] 5 mg PO DAILY #30 tablet 02/08/19 Unknown Rx Sennosides Tab [Senokot] 8.6 mg PO BID #30 tablet 02/08/19 Unknown Rx oxyCODONE [Roxicodone TAB] 10 mg PO Q6H PRN #14 tablet 02/08/19 Unknown Rx Active Medications: Generic Name Dose Route Start Last Admin Trade Name Freq PRN Reason Stop Dose Admin Acetaminophen 650 mg 02/04/19 14:00 02/07/19 08:41 Tylenol PO 650 mg Q4H PRN Administration Pain MILD(1-3)/Fever >100.5/JOSHI Albuterol 2.5 mg 02/04/19 14:00 Proventil IH Q4HRT PRN Shortness Of Breath Famotidine 10 mg 02/04/19 22:00 02/08/19 22:23 Pepcid PO 10 mg BID BRITT Administration Heparin Sodium/Sodium Chloride 25,000 unit in 500 mls @ 30 mls/hr 02/04/19 14:00 02/08/19 22:21 Heparin/ 0.45% Nacl-25,000 Unit/500 Ml IV 800 units/hr TITR BRITT 16 mls/hr Titration Protocol 1,500 UNITS/HR Ondansetron HCl 4 mg 02/04/19 14:00 Zofran IV Q8H PRN Nausea And Vomiting Oxycodone HCl 10 mg 02/06/19 12:17 02/09/19 06:30 Roxicodone PO 10 mg Q6H PRN Administration Pain, Moderate (4-6) Senna 8.6 mg 02/06/19 22:00 02/08/19 22:23 Senokot PO 8.6 mg BID BRITT Administration Sodium Chloride 10 ml 02/04/19 22:00 02/08/19 22:24 Sodium Chloride Flush Syringe 10 Ml IV 10 ml BID BRITT Administration Sodium Chloride 10 ml 02/04/19 14:00 Sodium Chloride Flush Syringe 10 Ml IV PRN PRN LINE FLUSH
[2019-02-09 08:00] VITALS: BP 126/69
[2019-02-09] MEDS: SENOKOT PO SCH (09:22)
[2019-02-09] MEDS: PEPCID PO SCH (09:22)
[2019-02-09] MEDS: SODIUM CHLORIDE FLUSH SYRINGE 10 ML IV SCH (09:23)
[2019-02-09] MEDS: TYLENOL PO PRN (10:49)
== END 2019-02-09 12:15 | disposition home health service (06) | DRG 299 ==
LOC: ED 09:20 → 2B-ACE 14:00
PROVIDERS: ADMIT Internal Medicine; ATTEND Internal Medicine
DX: I82.422 Acute embolism and thrombosis of left iliac vein (principal); N17.0 Acute kidney failure with tubular necrosis; C90.00 Multiple myeloma not having achieved remission; E66.2 Morbid (severe) obesity with alveolar hypoventilation; D68.9 Coagulation defect, unspecified; F45.8 Other somatoform disorders; I10 Essential (primary) hypertension; Z82.49 Family history of ischemic heart disease and other diseases of the circulatory system; Z68.39 Body mass index [BMI] 39.0-39.9, adult; Z79.899 Other long term (current) drug therapy; Z88.8 Allergy status to other drugs, medicaments and biological substances; Z88.0 Allergy status to penicillin; Z71.3 Dietary counseling and surveillance
CPT/HCPCS: 36415; 80048; 80053; 85007; 85014; 85018; 85025; 85049; 85520; 85610; 85730; 96361; 96374; G0378; J1644; J3010; J7030